=== PATIENT | female | born 1985 | race Caucasian/White ===

== ENCOUNTER 2017-09-11 04:04 | Inpatient (IN) | payer OTHER ==
[~2017-09-11] VITALS: Ht 172.7 cm; Wt 109.0 kg
[~2017-09-11 04:04] MED LIST: CLC100 PO; PRENTAB26 PO
[2017-09-11] MEDS ORDERED: BUPIVACAINE 0.25% 30 ML VIAL ONE (04:58)
[2017-09-11] MEDS ORDERED: FENTANYL CITRATE INJ 50 MCG/1 ML 2 ML VIAL ONE (04:58)
[2017-09-11] MEDS ORDERED: EpHEDrine SULFATE INJ 50 MG/ML AMP ONE (04:58)
[2017-09-11] MEDS ORDERED: FENTANYL 2MCG/ML ROPIV 1.25MG/ML 100ML BAG ONE (04:59)
[2017-09-11] MEDS ORDERED: LACTATED RINGER'S 1000ML 1,000 ML IV PRN ×2 (05:03→05:04)
[2017-09-11] MEDS ORDERED: LACTATED RINGER'S 1000ML 1,000 ML IV SCH ×2 (05:03→05:04)
[2017-09-11 05:31] LABS: HEMOGLOBIN 11.1 g/dL (12.0-16.0); MEAN CELL VOLUME 82.7 fL (80-100); MEAN CORPUSCULAR HGB CONC 32.6 g/dl (32-36); MEAN PLATELET VOLUME 11.3 fL (7.4-10.4); PLATELET COUNT 193 K/uL (130-400); RED CELL DISTRIBUTION WIDTH CV 15.9 % (11.5-14.5); WHITE BLOOD COUNT 14.02 K/uL (4.8-10.8)
[2017-09-11 05:56] VITALS: Ht 172.7 cm; Wt 109.0 kg
[2017-09-11] MEDS ORDERED: LACTATED RINGER'S 1000ML 500 ML IV PRN (06:28)
[2017-09-11] MEDS ORDERED: NALOXONE HCL INJ 1 MG in SODIUM CHLORIDE 0.9% 1000ML 1,000 ML IV PRN (06:28)
[2017-09-11] MEDS ORDERED: FENTANYL 2MCG/ML ROPIV 1.25MG/ML 100ML BAG EPI PRN (06:30)
[2017-09-11] MEDS ORDERED: EpHEDrine SULFATE INJ 50 MG/ML AMP IV PRN (06:30)
[2017-09-11] MEDS ORDERED: NALOXONE HCL INJ 0.4 MG/1 ML VIAL/CARP IV PRN (06:30)
[2017-09-11] MEDS ORDERED: NALBUPHINE HCL INJ 10 MG/ML 1ML AMP IV PRN (06:30)
[2017-09-11] MEDS ORDERED: DiphenhydrAMINE HCL 50 MG/ML VIAL IV PRN (06:30)
[2017-09-11] MEDS ORDERED: ONDANSETRON INJ 2 MG/ML 2 ML VIAL IV PRN (06:30)
[2017-09-11] MEDS ORDERED: OXYTOCIN 30 UNITS/500ML NSS IV ONE (06:51)
[2017-09-11] MEDS ORDERED: MEASLES, MUMPS & RUBELLA VIRUS VIAL SQ. ONE (08:15)
[2017-09-11] MEDS ORDERED: DIPHTHERIA/TETANUS/PERTUSSIS 0.5 ML SYR/VIAL IM. ONE (08:15)
[2017-09-11] MEDS ORDERED: LANOLIN OINT EXT PRN (08:15)
[2017-09-11] MEDS ORDERED: ACETAMINOPHEN 325 MG TAB PO PRN (08:15)
[2017-09-11] MEDS ORDERED: OXYCODONE/ACETAMINOPHEN 5-325 TAB PO PRN (08:15)
[2017-09-11] MEDS ORDERED: SUPERCREAM 0.870 % 15GM JAR EXT PRN (08:15)
[2017-09-11] MEDS ORDERED: BENZOCAINE 20% AER SPR 82.5 GM CAN EXT PRN (08:15)
[2017-09-11] MEDS ORDERED: OXYTOCIN 30 UNITS/500ML NSS IV PRN (08:15)
--- NOTE | 2017-09-11 08:51 | DELIVERY SUMMARY ---
DATE OF OPERATION: 09/11/2017 DATE OF DELIVERY: 09/11/2017 TIME OF DELIVERY OF BABY: 0655 a.m. TIME OF DELIVERY OF PLACENTA: 0710 a.m. DETAILS OF DELIVERY: The patient was found to be fully dilated and head at +1 station and desired to push. She pushed for about 10 minutes. heart rate was having decelerations to 80-90's and the head was partially and the patient was pushing with good efforts. Due to suspected macrosomia and heart decelerations, decision was made to open a small right mediolateral episiotomy. The patient had good pain control with epidural. The episiotomy was opened and then with the patient push, head was delivered without difficulty. There was nuchal cord around the neck x1 which was loose and was reduced. The shoulders were delivered with minimal traction. Baby was handed off to the mother where mouth and nose were suctioned. Baby was crying and actively moving. Cord was clamped x2 and cut at 1 minute delay and then cord blood was obtained. Then, perineum and vagina were checked for lacerations. There was small right mediolateral episiotomy which was opened earlier. It was repaired with 2-0 Vicryl in a running locked fashion. Excellent hemostasis was achieved. There noted to be superficial lacerations between the labial fusion and superior to the urethral opening. Those were also repaired with 3-0 Vicryl on SH needle. Then, the placenta was found to be in the vagina, delivered spontaneously intact and complete. Uterus was explored, found to be empty. Lower segment was cleared off all clots and debris. Fundus was firm. EBL was 200 mL. Mother and baby tolerated the procedure well. Sponge, lap, and needle counts were correct x3. Baby was a viable female infant. Apgars 8/9. Weight was 4043 gr. No complications happened and I was present during whole procedure. I attest to the content of the Intraoperative Record and any orders documented therein. Any exceptions are noted below. MTDD
--- NOTE | 2017-09-11 09:09 | Anesthesia Procedure Note ---
Anesthesia Epidural Removal Nt Date & Time Sep 11, 2017 at 09:08 Vital Signs Pain Intensity: 10.0 Notes Mental Status: alert / awake / arousable, participated in evaluation Nausea / Vomiting: adequately controlled Pain: adequately controlled Airway Patency, RR, SpO2: stable & adequate BP & HR: stable & adequate Hydration State: stable & adequate Neuraxial Anesthesia: was administered, sensory block is resolved Anesthetic Complications: no major complications apparent, pt satisfied with anesthetic care Epidural: removed without complications, with tip intact
[2017-09-11 09:45] VITALS: BP 123/64; PULSE 92; TEMP 36.8; O2SAT 98
[2017-09-11 12:06] VITALS: BP 120/77; PULSE 79; TEMP 36.9; O2SAT 97
[2017-09-11] MEDS: IBUPROFEN 600 MG TAB PO PRN ×3 (13:21→23:44)
[2017-09-11 15:30] VITALS: BP 126/85; PULSE 82; TEMP 36.7
[2017-09-11 19:05] VITALS: BP 124/82; PULSE 81; TEMP 37.1
[2017-09-11] MEDS: DOCUSATE SODIUM 100 MG CAP PO SCH (19:20)
[2017-09-11 23:45] VITALS: BP 117/78; PULSE 65; TEMP 36.5
[2017-09-12 03:35] VITALS: BP 120/74; PULSE 76; TEMP 36.6
[2017-09-12 06:13] LABS: HEMATOCRIT 31.1 % (37-47); HEMOGLOBIN 9.9 g/dL (12.0-16.0)
[2017-09-12] MEDS: IBUPROFEN 600 MG TAB PO PRN ×2 (07:10→12:34)
[2017-09-12 07:38] VITALS: BP 134/84; PULSE 66; TEMP 36.7; O2SAT 99
--- NOTE | 2017-09-12 07:38 | OB/GYN Progress Note ---
[facility] Progress Note Date of Service: Sep 12, 2017. Patient is seen and examined. She feels well, no complaints. Ambulating without dizziness Voiding without difficulty Tolerating regular diet with out N&V Bleeding is minimal No fever/ chills/ CP/ SOB/ N&V/ Leg pain Breast feeding without problems Date Time Temp Pulse Resp B/P (MAP) Pulse Ox O2 Delivery O2 Flow Rate FiO2 09/12/17 03:35 36.6 76 18 120/74 (89) Room Air 09/11/17 23:45 Room Air 09/11/17 23:45 36.5 65 18 117/78 (91) Room Air 09/11/17 19:05 37.1 81 20 124/82 (96) Room Air 09/11/17 15:30 36.7 82 18 126/85 (99) Room Air 09/11/17 15:30 Room Air 09/11/17 12:06 36.9 79 18 120/77 (91) 97 Room Air 09/11/17 09:45 36.8 92 18 123/64 (83) 98 Room Air 09/11/17 09:45 Room Air Last 24 Hours Test 09/12/17 05:48 Hemoglobin 9.9 g/dL Hematocrit 31.1 % PE: General: Alert, orientedx3, NAD Abd: soft, NT, fundus firm, below Umbilicus Perineum intact, Lochia rubra minimal Ext; NT, no edema AP: 32 yo s/p , ppd# 1 VSS Afebrile doing well Continue routine care All questions were answered
[2017-09-12] MEDS: DOCUSATE SODIUM 100 MG CAP PO SCH (07:45)
[2017-09-12] MEDS ORDERED: PRENATAL VITAMIN TAB PO SCH (08:00)
[2017-09-12] MEDS ORDERED: FERROUS SULFATE 325 MG TAB PO SCH (08:00)
[2017-09-12 15:54] VITALS: BP 117/79; PULSE 79; TEMP 36.4; O2SAT 99
--- NOTE | 2017-09-12 16:40 | Discharge Instructions ---
Discharge Instructions Date of Service Sep 12, 2017. Admission Reason for Admission: LABOR Discharge Discharge Diagnosis / Problem: Discharge Goals Goal(s): Routine recovery after delivery Medications Continue Dispensed Medications: other Activity Recommendations Activity Limitations: as noted below ACTIVITY RECOMMENDATIONS: * Gradual return to full activity over the next 2-3 weeks. * No lifting - nothing heavier than baby over the next 2-3 weeks. * Do not engage in vigorous exercise, sexual activity or sports until cleared by your physician. * Do not drive or operate any motorized equipment until cleared by your physician. * You may shower/bathe daily. BREAST CARE: If you are not breast feeding: * Wear a supportive bra 24 hours a day for one to two weeks. * Avoid stimulating your breasts and nipples as much as possible during the first few weeks after delivery. * When taking a shower, have the warm water hit your back, not breasts. * When your breasts feel full, apply ice packs. Usually three to four times a day helps ease the discomfort. * Take a mild pain medication (Tylenol/Motrin) when you are uncomfortable. If breast feeding: * Use breast milk to lubricate nipples. Lansinoh cream may be used for sore nipples. You do not need to remove cream prior to breast feeding. If using a different brand of cream, check the label for directions regarding removal of cream prior to nursing. * Wear a supportive bra. * If having problems with breasts or breast feeding, call a business analyst consultant or your health care provider. EPISIOTOMY CARE: After delivery, if you have an episiotomy (stitches), the following steps will ease discomfort and aid healing. * For the first 24 hours after delivery, place ice packs next to your episiotomy to help reduce swelling. * After the first 24 hour-period, sitz baths, either portable or in the tub, are suggested. A shower with a shower arm sprayed over the episiotomy may be comforting. * Sahra care should be done after each voiding and bowel movement. Squirt warm water from a plastic bottle over the perineum (region of the body between the anus and urinary opening) and pat dry. * Use Dermoplast to ease discomfort. Shake container. [place] directly over the episiotomy. * Place a Tucks on a clean sanitary pad next to your episiotomy. OVER THE COUNTER MEDICATION: * For discomfort or pain, you may use Acetaminophen (Tylenol), Ibuprofen (Advil ), or Naproxen (Aleve) following the package directions. * For constipation you may use Colace following the package directions. SPECIAL CARE INSTRUCTIONS: When you are discharged from the hospital, it is important for you to follow the instructions listed below: * During the first week at home, you should be able to care for yourself and your baby. In addition, the usual light household activities are encouraged. * Limit your activities to the way you feel. Do not try to clean the house or move furniture. Be sensible. * If you actively engage in sports and have done so up until the time of your delivery, you may resume these activities as soon as you feel able. This may take up to one month or even longer. Use good judgment. * Continue to take your vitamins for at least six weeks after the of your baby. * Your diet need not be limited unless you were on a special diet before your delivery. Breast-feeding mothers need around 2500 calories per day and at least 64-80 ounces of fluid per day (8 to 10 glasses). * You should eat foods from the four major food groups. Crash diets or fad diets are to be avoided. Eating lean meats, fresh fruits and vegetables, low-fat dairy products, high fiber foods and a regular exercise program, will help you get back to your pre- weight without putting your health at risk. * Constipation is sometimes a problem after delivery. Take a mild laxative as needed. If breast feeding, Milk of Magnesia is acceptable to use. You may use a suppository or Fleets enema if no episiotomy. * A daily shower or tub bath is suggested. Be sure to thoroughly and gently dry the perineum. * A bloody vaginal discharge will usually continue until around four weeks post . A small amount of bleeding may continue for as long as six weeks. Vaginal discharge changes from the bright red bleeding after delivery to pink then brownish and finally yellowish-pink before becoming white and disappearing. * Bleeding may increase with activity. Your first period may come in 4-8 weeks. If you are breast feeding, your period may be delayed even longer. * [place] (sex) can begin whenever both you and your partner feel comfortable and do not have any form of genital infection. It is recommended that you wait until after your return appointment and discuss with your physician. If you have questions, please talk to your health care practitioner. A condom should be used to prevent infection and . * Foreplay, gentle intercourse and lubrication is very important the first several times to prevent pain. A water-based lubricant such as K-Y jelly or Astroglide may be used. * Tampons may be used six weeks after delivery. * Douching should be avoided for 6 weeks after delivery. * If you have RH negative blood and your baby is RH positive, you will receive RHOGAM by injection prior to discharge. The nurse will give you a card to keep with you that has the date and place that you received RHOGAM after delivery. * During your care, you had a Rubella screen done to check for the presence of rubella antibodies in your blood. If your test was negative, you will receive a Rubella vaccine prior to discharge. This vaccine may cause a fever, soreness at the injection site and flu-like symptoms. If these symptoms persist, notify your health care practitioner. is not advised for three months after a Rubella vaccine. There is a higher chance of having a baby with defects if conceived within three months of getting the vaccine. * If you were discharged 24 hours from delivery or before 48 hours: Visiting nurses will come to your home 48 hours after discharge to assess you and your baby. The visiting nurse will meet with you while you are in the hospital to arrange a time and get directions to your home. * Verbalizes understanding of car seat law as reviewed with patient nursing. * Car Seat hand-out given and reviewed with patient by nursing. * Shaken baby information reviewed with patient by nursing. Call you doctor if: * Heavy bleeding (saturating several pads an hour) or passing clots the size of your fist. * A fever >101 degrees F (38.3 degrees C) on two occasions four hours apart and/or chills. * Unusual pain in the pelvic or vaginal areas. * "Baby Blues" lasting longer than two weeks. If you have any questions or concerns, call your health care practitioner at . FOLLOW-UP VISIT: * Please call the office at to schedule a 6 week examination. It is important you keep this appointment. * It is important for you to make arrangements for either yearly or twice yearly check-ups thereafter. . Current Hospital Diet Patient's current hospital diet: Regular OB Diet Discharge Diet Recommended Diet: Regular Diet Pending Studies Studies pending at discharge: no Medical Emergencies . Who to Call and When: Medical Emergencies: If at any time you feel your situation is an emergency, please call 911 immediately. . Non-Emergent Contact Non-Emergency issues call your: Flash Drier Operator, Specialist Call Non-Emergent contact if: you have a fever, temperature is above 100.5, your pain is not controlled, your pain is worsening . . "Provider Documentation" section prepared by Jake Gasca. .
[2017-09-12 18:19] VITALS: BP_DIAS 79; PULSE 79; TEMP 36.4
[2017-09-12] MEDS ORDERED: BISACODYL 5 MG TABEC PO SCH (20:00)
[2017-09-13] MEDS ORDERED: BISACODYL 10 MG SUPP PR PRN (07:00)
== END 2017-09-12 18:45 | disposition home or self-care (01) | DRG 775 ==
LOC: C.OPB 04:04 → C.LD 04:13 → C.OPB 05:06 → C.LD 05:06 → C.OBG 10:11
PROVIDERS: ADMIT Obstetrics & Gynecology; ATTEND Obstetrics & Gynecology
PROC: 0W8NXZZ Division of Female Perineum, External Approach (ICD-10-PCS; principal; 2017-09-11)
PROC: 10E0XZZ Delivery of Products of Conception, External Approach (ICD-10-PCS; principal; 2017-09-11)
DX: O76 Abnormality in fetal heart rate and rhythm complicating labor and delivery (principal); O69.81X0 Labor and delivery complicated by cord around neck, without compression, not applicable or unspecified; O99.214 Obesity complicating childbirth; E66.9 Obesity, unspecified; Z3A.40 40 weeks gestation of pregnancy; Z37.0 Single live birth

== ENCOUNTER 2024-01-25 10:10 | Inpatient (IN) ==
--- NOTE | 2024-01-25 10:53 | Emergency Department Note ---
Impression & Plan Bowel perforation, Acute left flank pain, Leukocytosis, Intra-abdominal free air of unknown etiology ED Provider Note NAME: RASHAWN ROJAS AGE: 38 SEX: F : 1985 ARRIVES VIA: Walk-In INFORMANT: [Patient] ED PROVIDER(S): [Dre Monroy MD] CHIEF COMPLAINT: Flank pain HISTORY OF PRESENT ILLNESS: The patient is a 38-year-old female who presents to the ER with left posterior rib and flank pain. The pain began yesterday midday when she was sitting. The pain is worse to move, she has no pain if she lays still. She does have some pleuritic discomfort with the pain. She is not really short of breath. There has been no cough or congestion. She does not have any pain radiation. No urinary complaints. She has not vomited but did feel some nausea at times. No history of previous DVT or PE, she has not suffered trauma. PMHx/PSHx/Social Hx: See Below PHYSICAL EXAM: GENERAL: Patient is in no acute distress. HEENT: No acute trauma, normocephalic atraumatic, mucous membranes moist, no nasal congestion. NECK: No stridor, no adenopathy, no meningismus, trachea is midline. LUNGS: Clear to auscultation bilaterally, no wheeze, no rhonchi, breath sounds equal. Chest: Tender to the left posterior lateral ribs, no crepitus. HEART: Without murmurs gallops or rubs, regular rate and rhythm. ABDOMEN: Soft, very minimally tender in the left upper quadrant, mostly, palpation here causes pain in the area of the left posterior ribs. EXTREMITIES: No cyanosis, full range of motion of all the joints without pain or difficulty. NEUROLOGIC: Oriented x 3, no acute motor or sensory deficits, no focal weakness. SKIN: No jaundice, no diaphoresis. Back: Left flank discomfort with percussion. DIFFERENTIAL DIAGNOSIS: Musculoskeletal pain, PE, pneumonia, UTI, renal colic, diverticulitis, pyelonephritis, among others. EMERGENCY DEPARTMENT PROCEDURES: MEDICAL DECISION MAKING: There is a mild leukocytosis, this would be consistent with infection. There was a normal hemoglobin and platelet count. D-dimer was elevated, making PE more of a possibility. There was no renal failure or significant electrolyte abnormality. No concerning liver enzyme elevation. No evidence for pancreatitis. testing was negative. Urinalysis did not show findings of infection. Chest x-ray showed free air. Abdominal and pelvis CT showed free air with a suspected gastric perforation. Patient was not in distress. She did not require anything for pain. The patient was given IV Zosyn as antibiotic coverage. She was given IV Protonix for the potential gastric ulcer findings. The patient presents with some left flank discomfort. She had minimal to no abdominal pain. Workup here suggests gastric perforation and free intra- abdominal air. I spoke with the patient, I spoke with the lead case manager. I did speak with the on-call general surgeon. The patient is being hospitalized. She is soon to be transferred to the operating room. Of note, I suspect the elevated D-dimer was secondary to the bowel perforation, I do not believe she has a PE. Prior/Outside records/notes reviewed: None Imaging/x-ray results per my interpretation: Chest x-ray shows free air, no pneumonia. Chronic Medical/Social conditions affecting care: None Care/Management discussed with: General Surgery-Dr. Montanez Level of care consideration(s): After review of the information above and other included data: --I believe the patient requires escalation of care to admission Critical Care Note: I have personally spent 53 minutes of critical care time in the direct management of this patient. This includes bedside care, interpretation of diagnostic studies, and testing, discussion with consultants, patient, and family members, and other required patient management activities. This 53 minutes is in excess of all separately billable procedures. DISPOSITION: Admission Past Med/Surg History Problem List (Updated 01/25/24 @ 16:17 by Dre Monroy MD) Intra-abdominal free air of unknown etiology (Acute) Leukocytosis (Acute) Acute left flank pain (Acute) Bowel perforation (Acute) Perforated ulcer Encounter for pre-operative examination Medical History No significant medical problems Surgical History (Updated 01/25/24 @ 13:36 by Canelo Singer MD) Hx of tonsillectomy Social History Smoking Status: Never smoker Feels Safe at Home: Yes Allergies Allergies Allergy/AdvReac Type Severity Reaction Status Date / Time prednisone Allergy Intermediate RASH Verified 11/20/13 05:17 Home Meds Home Medications Medication Instructions Recorded Confirmed Multivit/Min/Iron/Fol Ac/Pren 1 tab PO DAILY #0 tabs 11/18/13 ( Vitamin) Results & Data (ED) Vital Signs Vital Signs - 24 hr 01/25/24 10:10 01/25/24 10:18 01/25/24 10:57 Temperature 36.6 C Temperature Source Oral Pulse Rate 100 H 98 H Pulse Rate [Left Apical] Pulse Rhythm [Left Apical] Respiratory Rate 16 Respiratory Effort / Characteristics Non-Labored Spontaneous Respiratory Depth Normal Respiratory Pattern Regular Blood Pressure 127/78 Blood Pressure [Left Arm] Blood Pressure [Right Arm] Blood Pressure Mean 94 Blood Pressure Mean [Left Arm] Blood Pressure Mean [Right Arm] Blood Pressure Position [Left Arm] Pulse Oximetry 98 Oxygen Delivery Method Room Air Room Air Oxygen Flow Rate Sepsis Recent Fever Within 48 Hours No Sepsis New/Unexplained Change in Mental Status N/A Sepsis Action Taken by Nursing No Action Required 01/25/24 11:15 01/25/24 12:09 01/25/24 12:15 Temperature Temperature Source Pulse Rate 96 H 87 89 Pulse Rate [Left Apical] Pulse Rhythm [Left Apical] Respiratory Rate 20 19 24 Respiratory Effort / Characteristics Respiratory Depth Respiratory Pattern Blood Pressure 125/82 Blood Pressure [Left Arm] Blood Pressure [Right Arm] Blood Pressure Mean 96 Blood Pressure Mean [Left Arm] Blood Pressure Mean [Right Arm] Blood Pressure Position [Left Arm] Pulse Oximetry 98 97 95 Oxygen Delivery Method Oxygen Flow Rate Sepsis Recent Fever Within 48 Hours Sepsis New/Unexplained Change in Mental Status Sepsis Action Taken by Nursing 01/25/24 12:30 01/25/24 13:20 01/25/24 15:11 Temperature 36.7 C Temperature Source Temporal Artery Scan Pulse Rate Pulse Rate [Left Apical] 89 74 Pulse Rhythm [Left Apical] Regular Respiratory Rate 22 14 Respiratory Effort / Characteristics Non-Labored Spontaneous Non-Labored Spontaneous Respiratory Depth Normal Normal Respiratory Pattern Regular Regular Blood Pressure Blood Pressure [Left Arm] 134/90 Blood Pressure [Right Arm] 125/82 Blood Pressure Mean Blood Pressure Mean [Left Arm] 104 Blood Pressure Mean [Right Arm] 96 Blood Pressure Position [Left Arm] Semi-fowlers Pulse Oximetry 97 99 Oxygen Delivery Method Room Air Room Air Oxymask Oxygen Flow Rate 9 Sepsis Recent Fever Within 48 Hours Sepsis New/Unexplained Change in Mental Status Sepsis Action Taken by Nursing 01/25/24 15:20 01/25/24 15:30 01/25/24 15:40 Temperature Temperature Source Pulse Rate Pulse Rate [Left Apical] 79 77 80 Pulse Rhythm [Left Apical] Regular Regular Regular Respiratory Rate 15 18 12 Respiratory Effort / Characteristics Non-Labored Spontaneous Non-Labored Spontaneous Non-Labored Spontaneous Respiratory Depth Normal Normal Normal Respiratory Pattern Regular Regular Regular Blood Pressure Blood Pressure [Left Arm] 132/84 122/77 129/77 Blood Pressure [Right Arm] Blood Pressure Mean Blood Pressure Mean [Left Arm] 100 92 94 Blood Pressure Mean [Right Arm] Blood Pressure Position [Left Arm] Semi-fowlers Semi-fowlers Semi-fowlers Pulse Oximetry 100 100 98 Oxygen Delivery Method Oxymask Oxymask Oxymask Oxygen Flow Rate 9 9 4 Sepsis Recent Fever Within 48 Hours Sepsis New/Unexplained Change in Mental Status Sepsis Action Taken by Nursing 01/25/24 15:50 01/25/24 16:00 Temperature Temperature Source Pulse Rate Pulse Rate [Left Apical] 81 79 Pulse Rhythm [Left Apical] Regular Regular Respiratory Rate 16 16 Respiratory Effort / Characteristics Non-Labored Spontaneous Non-Labored Spontaneous Respiratory Depth Normal Normal Respiratory Pattern Regular Regular Blood Pressure Blood Pressure [Left Arm] 123/79 129/79 Blood Pressure [Right Arm] Blood Pressure Mean Blood Pressure Mean [Left Arm] 93 95 Blood Pressure Mean [Right Arm] Blood Pressure Position [Left Arm] Semi-fowlers Semi-fowlers Pulse Oximetry 96 95 Oxygen Delivery Method Oxymask Room Air Oxygen Flow Rate 4 Sepsis Recent Fever Within 48 Hours Sepsis New/Unexplained Change in Mental Status Sepsis Action Taken by Long Term Medications Current Medication List: was personally reviewed by me Laboratory Data Attestation: I reviewed the patient's lab results. 01/25/24 10:49 01/25/24 10:49 Lab Results 01/25/24 01/25/24 01/25/24 Range/Units 10:48 10:49 10:50 WBC 13.57 H (4.8-10.8) K/ul RBC 4.77 (4.20-5.40) M/uL Hgb 14.0 (12.0-16.0) g/dl Hct 42.1 (37.0-47.0) % MCV 88.3 (80.0-100.0) fL MCH 29.4 (25.0-34.0) pg MCHC 33.3 (32.0-36.0) g/dL RDW Std Deviation 44.6 (36.4-46.3) fL RDW Coeff of Felice 13.8 (11.5-14.5) % Plt Count 277 (130-400) K/uL MPV 10.8 (9.4-12.4) fL Immature Gran % (Auto) 0.4 % Neut % (Auto) 78.7 % Lymph % (Auto) 14.4 % Nobles % (Auto) 5.8 % Eos % (Auto) 0.4 % Baso % (Auto) 0.3 % Neut # (Auto) 10.68 H (1.40-6.50) K/uL Lymph # (Auto) 1.95 (1.20-3.40) K/uL [place] # (Auto) 0.79 H (0.11-0.59) K/uL Eos # (Auto) 0.05 (0.00-0.50) K/uL Baso # (Auto) 0.04 (0.00-0.20) K/uL Immature Gran # (Auto) 0.06 (0.01-0.20) K/uL D-Dimer 1130 H* (0-500) ug/L FEU Sodium 137 (136-145) mmol/L Potassium 3.9 (3.5-5.1) mmol/L Chloride 106 (98-107) mmol/L Carbon Dioxide 23 (21-32) mmol/L Anion Gap 8 (3-11) BUN 10 (6-23) mg/dl Creatinine 0.76 (0.6-1.2) mg/dl Est Cr Clr Drug Dosing 129.4 ml/min eGFR 103.44 BUN/Creatinine Ratio 13.2 (10-20) Glucose 96 (70-99(Fasting)) mg/dl Calcium 9.2 (8.6-10.3) mg/dl Total Bilirubin 0.8 (0.2-1.0) mg/dl AST 20 (13-39) U/L ALT 28 (7-52) U/L Alkaline Phosphatase 104 (34-104) U/L Total Protein 7.6 (6.0-8.3) gm/dl Albumin 4.3 (3.4-5.0) gm/dl Globulin 3.3 (2.5-4.0) gm/dl Albumin/Globulin Ratio 1.3 (0.9-2) Lipase 17 (11-82) U/L HCG, Qual Negative (Negative) Urine Color Yellow Urine Appearance Clear (Clear) Urine pH 7.0 (4.5-7.5) Ur Specific [place] 1.015 (1.000-1.030) Urine Protein Negative (Negative) Urine Glucose (UA) Negative (Negative) Urine Ketones Negative (Negative) Urine Blood Negative (Negative) Urine Nitrite Negative (Negative) Urine Bilirubin Negative (Negative) Urine Urobilinogen Negative (Negative) Ur Leukocyte Esterase 1+ H (Negative) Urine WBC (Auto) 0-5 (0-5) /hpf Urine RBC (Auto) 3-5 H (0-2) /hpf U Hyaline Cast (Auto) 3-5 H (0-2) /lpf U Epithel Cells (Auto) 3-5 H (0-2) /hpf Urine Bacteria (Auto) 1+ H (None Seen) Administered Medications Hydromorphone HCl (Hydromorphone Inj 1 Mg/Ml Syringe) 0.25 mg IV Q5M PRN PRN Reason: PACU Use Only-Pain Stop: 01/25/24 23:47 Last Admin: 01/25/24 16:01 Dose: 0.25 mg Documented By: Admin: 01/25/24 15:56 Dose: 0.25 mg Documented By: Admin: 01/25/24 15:51 Dose: 0.25 mg Documented By: JACQUELINE Discontinued Medications Hydromorphone HCl (Hydromorphone Inj 1 Mg/Ml Syringe) 0.25 mg IV Q5M PRN PRN Reason: PACU Use Only-Pain Stop: 01/25/24 21:41 Last Admin: 01/25/24 15:39 Dose: 0.25 mg Documented By: Admin: 01/25/24 15:31 Dose: 0.25 mg Documented By: Admin: 01/25/24 15:25 Dose: 0.25 mg Documented By: Admin: 01/25/24 15:20 Dose: 0.25 mg Documented By: JACQUELINE Piperacillin Sod/Tazobactam Sod (Zosyn) 4.5 gm in 100 mls @ 200 mls/hr IV NOW ONE Stop: 01/25/24 11:38 Last Admin: 01/25/24 11:22 Dose: 200 mls/hr Documented By: NICO Cefazolin Sodium (Ancef 2000mg) 2,000 mg in 15 mls @ 3.75 mls/min IV ONCE ONE; Protocol Stop: 01/25/24 14:47 Last Admin: 01/25/24 14:05 Dose: 3.75 mls/min Documented By: MAURICIO Ioversol (Optiray 320 100ml) 94 ml IV ONCE ONE Stop: 01/25/24 12:01 Last Admin: 01/25/24 12:00 Dose: 94 ml Documented By: SCOT Imaging Data Radiologist's Impression: Chest X-Ray 01/25/24 10:48 XR chest 1V portable CLINICAL HISTORY: left flank pain COMPARISON STUDY: Chest radiograph September 27, 2008. FINDINGS: No pneumothorax or pleural effusion is present. Linear left lower lung densities favor atelectasis. There is no evidence for pulmonary edema. Lucency under the hemidiaphragms indicates moderate pneumoperitoneum. IMPRESSION: 1. Moderate pneumoperitoneum suggestive of a perforated hollow viscus. This can be assessed on the CT of the abdomen and pelvis which has been ordered. 2. Left basilar density suggestive atelectasis. ACT 112: Negative or not required by law. Electronically signed by: Alejandro White M.D. 01/25/2024 11:32 AM Abdomen/Pelvis CT 01/25/24 11:09 CT OF THE ABDOMEN AND PELVIS WITH CONTRAST CLINICAL HISTORY: free air, left flank pain COMPARISON STUDY: Chest radiograph performed earlier today. TECHNIQUE: Following IV administration of 94 mL of Optiray, axial images of the abdomen and pelvis were obtained from the lung bases to the proximal femurs. Images were reviewed in the axial, sagittal, and coronal planes. IV contrast was administered without complication. Automated exposure control was utilized for the study. A dose lowering technique was utilized adhering to the principles of ALARA. CT DOSE: 1509.78 mGy.cm FINDINGS: There is a small hiatal hernia. Linear densities within the lower lungs favor atelectasis. Moderate pneumoperitoneum is present. There is mild stranding adjacent to the gastric cardia. No fluid collection is present. There may be wall thickening of the gastric cardia. Liver, spleen, adrenal glands, kidneys and pancreas are normal. There is no evidence for a bowel obstruction. Intrauterine device is in place. Major vasculature is patent. There is no hydronephrosis. There is no lymphadenopathy. IMPRESSION: Moderate pneumoperitoneum consistent with a perforated hollow viscus. Given mild stranding adjacent to the stomach, a perforated gastric ulcer is favored. Surgical consultation is recommended. ACT 112: Negative or not required by law. Electronically signed by: Alejandro White M.D. 01/25/2024 12:32 PM Discharge Plan Visit Data Chief Complaint: Flank Pain Stated Complaint: L SIDE ABD AND FLANK PAIN ED Provider: Dre Monroy Discharge Problem: Bowel perforation, Acute left flank pain, Leukocytosis, Intra-abdominal free air of unknown etiology Patient Disposition: Admitted As Inpatient Condition: Serious Discharge Instructions Interventions: ED Discharge Assessment Last Done: 01/25/24 13:20 Forms Stand Alone Forms: [employer] Prescriptions Prescriptions: No Action Multivit/Min/Iron/Fol Ac/Pren ( Vitamin) tablet 1 tab PO DAILY Qty: 0 Referrals Referrals: PCP,NO [Physician] - Discharge Problem: Leukocytosis Qualifiers: Leukocytosis type: unspecified Qualified Code(s): D72.829 - Elevated white blood cell count, unspecified
[2024-01-25 11:15] LABS: Basophils # (auto) 0.04 K/uL (0.00-0.20); Basophils % (auto) 0.3 %; Eosinophils # (auto) 0.05 K/uL (0.00-0.50); Eosinophils % (auto) 0.4 %; Hematocrit (blood only) 42.1 % (37.0-47.0); Immature Granulocytes # (auto) 0.06 K/uL (0.01-0.20); Immature Granulocytes % (auto) 0.4 %; Lymphocytes # (auto) 1.95 K/uL (1.20-3.40); Lymphocytes % (auto) 14.4 %; Mean Corpuscular Hemoglobin 29.4 pg (25.0-34.0); Mean Corpuscular Hgb Conc 33.3 g/dL (32.0-36.0); Mean Corpuscular Volume 88.3 fL (80.0-100.0); Mean Platelet Volume 10.8 fL (9.4-12.4); Monocytes # (auto) 0.79 K/uL (0.11-0.59); Monocytes % (auto) 5.8 %; Neutrophils # (auto) 10.68 K/uL (1.40-6.50); Neutrophils % (auto) 78.7 %; Platelet Count 277 K/uL (130-400); RDW Coefficient of Variation 13.8 % (11.5-14.5); RDW Standard Deviation 44.6 fL (36.4-46.3); Red Blood Count 4.77 M/uL (4.20-5.40); White Blood Count 13.57 K/ul (4.8-10.8)
[2024-01-25 11:18] LABS: Appearance Urine Clear (Clear); Bacteria Urine Automated 1+ (None Seen); Bilirubin Urine Negative (Negative); Blood Urine Negative (Negative); Color Urine Yellow; Glucose Urine UA Negative (Negative); Ketones Urine Negative (Negative); Leukocyte Esterase Urine 1+ (Negative); Nitrite Urine Negative (Negative); Protein Urine Negative (Negative); Specific Gravity Urine 1.015 (1.000-1.030); Urobilinogen Urine Negative (Negative); WBC Urine Automated 0-5 /hpf (0-5)
[2024-01-25] MEDS: PIPERACILLIN/TAZOBACTAM 4.5 GM/100 ML BAG IV ONE (11:22)
[2024-01-25 11:32] LABS: Pregnancy Test, Serum Negative (Negative)
--- NOTE | 2024-01-25 11:34 | XRay Report ---
XR chest 1V portable CLINICAL HISTORY: left flank pain COMPARISON STUDY: Chest radiograph September 27, 2008. FINDINGS: No pneumothorax or pleural effusion is present. Linear left lower lung densities favor atel ectasis. There is no evidence for pulmonary edema. Lucency under the hemidiaphragms indicates moderat e pneumoperitoneum. IMPRESSION: 1. Moderate pneumoperitoneum suggestive of a perforated hollow viscus. This can be assessed on the CT of the abdomen and pelvis which has been ordered. 2. Left basilar density suggestive atelectasis. ACT 112: Negative or not required by law. Electronically signed by: Alejandro White M.D. 01/25/2024 11:32 AM
[2024-01-25 11:38] LABS: Albumin Globulin Ratio 1.3 (0.9-2); Albumin Level 4.3 gm/dl (3.4-5.0); BUN Creatinine Ratio 13.2 (10-20); Bilirubin,Total 0.8 mg/dl (0.2-1.0); Calcium 9.2 mg/dl (8.6-10.3); Creatinine Clr Calc Pharmacy 129.4 ml/min; Globulin 3.3 gm/dl (2.5-4.0); Potassium 3.9 mmol/L (3.5-5.1); Total Protein 7.6 gm/dl (6.0-8.3)
[2024-01-25 11:51] LABS: D Dimer 1130 ug/L FEU (0-500)
[2024-01-25] MEDS: OPTIRAY 320 100ml IV ONE (12:00)
--- NOTE | 2024-01-25 12:34 | CT Scan Report ---
CT OF THE ABDOMEN AND PELVIS WITH CONTRAST CLINICAL HISTORY: free air, left flank pain COMPARISON STUDY: Chest radiograph performed earlier today. TECHNIQUE: Following IV administration of 94 mL of Optiray, axial images of the abdomen and pelvis we re obtained from the lung bases to the proximal femurs. Images were reviewed in the axial, sagittal, and coronal planes. IV contrast was administered without complication. Automated exposure control wa s utilized for the study. A dose lowering technique was utilized adhering to the principles of ALARA . CT DOSE: 1509.78 mGy.cm FINDINGS: There is a small hiatal hernia. Linear densities within the lower lungs favor atelectasis. Moderate pneumoperitoneum is present. There is mild stranding adjacent to the gastric cardia. No flui d collection is present. There may be wall thickening of the gastric cardia. Liver, spleen, adrenal g lands, kidneys and pancreas are normal. There is no evidence for a bowel obstruction. Intrauterine de vice is in place. Major vasculature is patent. There is no hydronephrosis. There is no lymphadenopath y. IMPRESSION: Moderate pneumoperitoneum consistent with a perforated hollow viscus. Given mild strandi ng adjacent to the stomach, a perforated gastric ulcer is favored. Surgical consultation is recommend ed. ACT 112: Negative or not required by law. Electronically signed by: Alejandro White M.D. 01/25/2024 12:32 PM
[2024-01-25] MEDS ORDERED: LIDOCAINE 2% 2 ML VIAL/AMP(20MG/ML) INFIL ONE (12:54)
[2024-01-25] MEDS ORDERED: MIDAZOLAM HCL 1 MG/ML 2ML VIAL ONE (12:54)
[2024-01-25] MEDS ORDERED: ROCURONIUM BROMIDE 10 MG/ML 5 ML VIAL IV ONE (12:54)
[2024-01-25] MEDS ORDERED: fentaNYL citrate PF 100 MCG/2 ML VIAL ONE ×2 (12:54→14:17)
[2024-01-25] MEDS ORDERED: PROPOFOL IV EMULSION 10 MG/ML 20 ML VIAL IV ONE (12:54)
--- NOTE | 2024-01-25 13:18 | History & Physical Report ---
Date of Service January 25, 2024 Assessment & Plan (1) Perforated ulcer: Plan: IVF IV abx to OR for exploration consent obtained. History of Present Illness Primary Care Provider: Judie Cordero DO This is a 38YO seen in ED with LUQ abdominal pain which began yesterday. She has nausea but no vomiting. A CT scan shows free air and a likely perforated gastric or duodenal ulcer. Minimal free fluid. Allergies Allergy/AdvReac Type Severity Reaction Status Date / Time prednisone Allergy Intermediate RASH Verified 11/20/13 05:17 Home Medications Medication Instructions Recorded Confirmed Type Multivit/Min/Iron/Fol Ac/Pren 1 tab PO DAILY #0 tabs 11/18/13 History ( Vitamin) Past Med/Surg History Problem List (Updated 01/25/24 @ 13:19 by Julien Montanez MD) Perforated ulcer Social History Smoking Status: Never smoker Feels Safe at Home: Yes Review of Systems + anorexia; no fever and no chills no problem reported no problem reported no cough and no dyspnea no chest pain + abdominal pain and + nausea; no vomiting no dysuria + back pain no problem reported no localized weakness and no generalized weakness no behavioral changes Physical Exam Constitutional: WD/WN, vitals as above Eyes: PERRL, conjunctivae normal, anicteric sclerae ENMT: external ear and nose normal, oropharynx normal Neck: trachea midline Respiratory: normal respiratory effort, lungs clear to auscultation Cardiovascular: RRR, no murmur, no edema Gastrointestinal (Abdomen): Inspection/Auscultation: abdomen normal to inspection and normal bowel sounds; abdomen not distended Percussion/Palpation: + abdomen tender, + guarding and abdomen soft; abdomen not rigid Musculoskeletal: Head/Neck/Chest: normocephalic and head atraumatic Skin: no rashes, warm and dry Results & Data Vital Signs (Past 12 Hours) Vital Signs Temp Pulse Pulse Resp BP BP Pulse Ox 01/25/24 12:30 89 22 125/82 97 01/25/24 12:15 89 24 125/82 95 01/25/24 12:09 87 19 97 01/25/24 11:15 96 H 20 98 01/25/24 10:57 98 H 01/25/24 10:18 36.6 C 100 H 16 127/78 98 01/25/24 10:10 O2 Del Method 01/25/24 12:30 Room Air 01/25/24 12:15 01/25/24 12:09 01/25/24 11:15 01/25/24 10:57 01/25/24 10:18 Room Air 01/25/24 10:10 Room Air Diagnostic Findings [facility], [place] CT OF THE ABDOMEN AND PELVIS WITH CONTRAST CLINICAL HISTORY: free air, left flank pain COMPARISON STUDY: Chest radiograph performed earlier today. TECHNIQUE: Following IV administration of 94 mL of Optiray, axial images of the abdomen and pelvis were obtained from the lung bases to the proximal femurs. Images were reviewed in the axial, sagittal, and coronal planes. IV contrast was administered without complication. Automated exposure control was utilized for the study. A dose lowering technique was utilized adhering to the principles of ALARA. CT DOSE: 1509.78 mGy.cm FINDINGS: There is a small hiatal hernia. Linear densities within the lower lungs favor atelectasis. Moderate pneumoperitoneum is present. There is mild stranding adjacent to the gastric cardia. No fluid collection is present. There may be wall thickening of the gastric cardia. Liver, spleen, adrenal glands, kidneys and pancreas are normal. There is no evidence for a bowel obstruction. Intrauterine device is in place. Major vasculature is patent. There is no hydronephrosis. There is no lymphadenopathy. IMPRESSION: Moderate pneumoperitoneum consistent with a perforated hollow viscus. Given mild stranding adjacent to the stomach, a perforated gastric ulcer is favored. Surgical consultation is recommended.
--- NOTE | 2024-01-25 13:36 | Anesthesiology Consultation ---
Date of Service January 25, 2024 Assessment & Plan (1) Encounter for pre-operative examination: Chart Review Chart Review: Acceptable Risk for Surgery History Surgery Operation Date: 01/25/24 13:30 Proposed Procedures p Bowel Resection - Julien Montanez MD Height/Weight Height: 5 ft 8 in Weight: 106.3 kg Allergies Allergy/AdvReac Type Severity Reaction Status Date / Time prednisone Allergy Intermediate RASH Verified 11/20/13 05:17 Medications Home Medications Medication Instructions Recorded Confirmed Last Taken Multivit/Min/Iron/Fol Ac/Pren 1 tab PO DAILY #0 tabs 11/18/13 Unknown ( Vitamin) Past Medical History Medical History (Updated 01/25/24 @ 13:36 by Canelo Singer MD) Perforated ulcer Past Surgical History Surgical History (Updated 01/25/24 @ 13:36 by Canelo Singer MD) Hx of tonsillectomy Social History Smoking Status: Never smoker Physical Exam Vital Signs Last Vital Signs Temp 36.6 C 01/25/24 10:18 Pulse 89 01/25/24 12:30 Resp 22 01/25/24 12:30 BP 125/82 01/25/24 12:30 Pulse Ox 97 01/25/24 12:30 O2 Del Method Room Air 01/25/24 13:20 Testing Laboratory Results 01/25/24 10:49 01/25/24 10:49 Urine Color Yellow 01/25/24 10:50 Urine Appearance Clear (Clear) 01/25/24 10:50 Urine pH 7.0 (4.5-7.5) 01/25/24 10:50 Ur Specific [place] 1.015 (1.000-1.030) 01/25/24 10:50 Urine Protein Negative (Negative) 01/25/24 10:50 Urine Glucose (UA) Negative (Negative) 01/25/24 10:50 Urine Ketones Negative (Negative) 01/25/24 10:50 Urine Nitrite Negative (Negative) 01/25/24 10:50 Ur Leukocyte Esterase 1+ (Negative) H 01/25/24 10:50 Urine WBC (Auto) 0-5 /hpf (0-5) 01/25/24 10:50 Urine RBC (Auto) 3-5 /hpf (0-2) H 01/25/24 10:50 U Hyaline Cast (Auto) 3-5 /lpf (0-2) H 01/25/24 10:50 U Epithel Cells (Auto) 3-5 /hpf (0-2) H 01/25/24 10:50 Urine Bacteria (Auto) 1+ (None Seen) H 01/25/24 10:50
[2024-01-25] MEDS ORDERED: ATROPINE SULFATE 0.1 MG/ML 10ML SYR IV PRN (13:41)
[2024-01-25] MEDS ORDERED: PROMETHAZINE HCL 6.25 MG in SODIUM CHLORIDE 0.9% 50 ML IV PRN (13:41)
[2024-01-25] MEDS ORDERED: ONDANSETRON INJ 2 MG/ML 2 ML VIAL IV PRN (13:41)
[2024-01-25] MEDS: ceFAZolin 2000MG 2,000 MG/15 ML SYR IV ONE (14:05)
[2024-01-25] MEDS ORDERED: ceFAZolin 330 MG/ML 1 GM VIAL ONE (14:06)
[2024-01-25] MEDS ORDERED: KETAMINE HCL 10MG/ML SYR ONE (14:09)
[2024-01-25] MEDS ORDERED: SUGAMMADEX SODIUM 200 MG/2 ML VIAL IV ONE ×2 (14:46→15:01)
--- NOTE | 2024-01-25 15:17 | Operative Report ---
Post Operative Report Pre & Post Diagnosis Operation Date: 01/25/24 13:30 Perforated gastric cardia ulcer I identified the patient and participated in the time-out.: Yes Procedure Operation Date: 01/25/24 13:30 Perforated gastric cardia ulcer Surgeon Julien Montanez MD Visual Specialist none Estimated Blood Loss 75 Findings Consistent with Post-Op Diagnosis Specimens Gastric cardia ulcer Drains Flako drain in subhepatic space Anesthesia Type General Complications none Disposition Accompanied Patient To Recovery: No Disposition: Recovery Room Indications This is a 38-year-old female who was seen in the ED after workup for abdominal pain. CT scan shows free air along with some changes in the gastric cardia. This consistent with perforated gastric cardia ulcer. We talked in detail about this and recommended exploratory laparotomy. Description of Procedure Patient was taken to the OR and underwent excellent general endotracheal anesthesia. Her abdomen was then prepped and draped in sterile fashion. An upper midline incision was made and taken down to identify the fascia. Her fascia was incised sharply. The peritoneal cavity was entered there was some air which expelled upon entrance of the cavity. A good exploration was done. The duodenum was normal. The colon and small bowel were checked and were normal. She had what was fibrinous tissue in the upper part of the gastric cardia on the lesser curve, a perforated ulcer was identified. A harmonic scalpel was used to takedown the gastrocolic ligament on the lesser curve of the stomach. This freed the ulcer on the upper portion of the lesser curve. An Allis clamp was then placed on the ulcer and a RAEANN stapler was used to transect the gastric ulcer. Gastric ulcer was sent for pathologic evaluation. The abdomen was then irrigated out with warm saline. A Flako drain was placed along the subhepatic space positioned near the staple line. AN NG tube was fed into the body of the stomach. Hemostasis was noted. The fascia was then closed with running PDS suture. The skin was closed with rajendra. The drain was secured with a nylon suture. The patient tolerated procedure without complications. She was sent to the post-op recovery for a period of observation. Once criteria are met she will sent to the floor for her subsequent care. I attest to the content of the Intraoperative Record and any orders documented therein. Any exceptions are noted below.
[2024-01-25] MEDS: HYDROmorphone INJ 1 MG/ML SYRINGE IV PRN ×2 (15:20→15:51)
--- NOTE | 2024-01-25 16:37 | Anesthesiology Progress Note ---
Date of Service January 25, 2024 Anesthesia Post Procedure Vital Signs Vital Signs: Temp Pulse Pulse Resp BP BP BP 01/25/24 16:30 36.9 C 85 14 127/78 01/25/24 16:20 84 14 119/78 01/25/24 16:10 80 12 125/76 01/25/24 16:00 79 16 129/79 01/25/24 15:50 81 16 123/79 01/25/24 15:40 80 12 129/77 01/25/24 15:30 77 18 122/77 01/25/24 15:20 79 15 132/84 01/25/24 15:11 36.7 C 74 14 134/90 01/25/24 13:20 01/25/24 12:30 89 22 125/82 01/25/24 12:15 89 24 125/82 01/25/24 12:09 87 19 01/25/24 11:15 96 H 20 01/25/24 10:57 98 H 01/25/24 10:18 36.6 C 100 H 16 127/78 01/25/24 10:10 Pulse Ox O2 Del Method O2 Flow Rate 01/25/24 16:30 94 Room Air 01/25/24 16:20 94 Room Air 01/25/24 16:10 96 Room Air 01/25/24 16:00 95 Room Air 01/25/24 15:50 96 Oxymask 4 01/25/24 15:40 98 Oxymask 4 01/25/24 15:30 100 Oxymask 9 01/25/24 15:20 100 Oxymask 9 01/25/24 15:11 99 Oxymask 9 01/25/24 13:20 Room Air 01/25/24 12:30 97 Room Air 01/25/24 12:15 95 01/25/24 12:09 97 01/25/24 11:15 98 01/25/24 10:57 01/25/24 10:18 98 Room Air 01/25/24 10:10 Room Air Pain Intensity Abdomen: Pain Intensity: 5 Transfer of Care Handoff Completed per policy Notes Mental Status: alert / awake / arousable Patient Amnestic to Procedure: Yes Nausea / Vomiting: adequately controlled Pain: adequately controlled Airway Patency, RR, SpO2: stable & adequate BP & HR: stable & adequate Hydration State: stable & adequate Anesthetic Complications: no major complications apparent
[2024-01-25] MEDS ORDERED: oxyCODONE/ACETAMINOPHEN 5mg/325mg TAB PO PRN ×2 (17:32)
[2024-01-25] MEDS: PANTOprazole 80 MG in DEXTROSE 5% 100 ML IV ONE (17:40)
[2024-01-25] MEDS: MoRPHine SULFATE 4 MG/ML 1 ML CARP\\VIAL IV PRN (18:05)
[2024-01-25] MEDS: SODIUM CHLORIDE 0.9% 500 ML IV SCH (18:05)
[2024-01-25] MEDS: PIPERACILLIN/TAZOBACTAM 4.5 GM/100 ML BAG IV SCH (18:57)
[2024-01-25] MEDS: PANTOprazole 40 MG/10 ML SYR IV SCH (21:28)
[2024-01-26] MEDS: ONDANSETRON INJ 2 MG/ML 2 ML VIAL IV PRN (07:35)
[2024-01-26] MEDS: MoRPHine SULFATE 2 MG/ML CARP IV PRN (07:38)
[2024-01-26 08:12] LABS: Basophils # (auto) 0.03 K/uL (0.00-0.20); Basophils % (auto) 0.2 %; Hematocrit (blood only) 38.2 % (37.0-47.0); Hemoglobin 12.7 g/dl (12.0-16.0); Immature Granulocytes # (auto) 0.07 K/uL (0.01-0.20); Immature Granulocytes % (auto) 0.4 %; Lymphocytes # (auto) 1.31 K/uL (1.20-3.40); Lymphocytes % (auto) 7.4 %; Mean Corpuscular Hemoglobin 29.4 pg (25.0-34.0); Mean Corpuscular Hgb Conc 33.2 g/dL (32.0-36.0); Mean Corpuscular Volume 88.4 fL (80.0-100.0); Mean Platelet Volume 11.2 fL (9.4-12.4); Monocytes # (auto) 1.11 K/uL (0.11-0.59); Monocytes % (auto) 6.3 %; Neutrophils # (auto) 15.14 K/uL (1.40-6.50); Neutrophils % (auto) 85.7 %; Platelet Count 250 K/uL (130-400); RDW Coefficient of Variation 13.7 % (11.5-14.5); RDW Standard Deviation 44.6 fL (36.4-46.3); Red Blood Count 4.32 M/uL (4.20-5.40); White Blood Count 17.66 K/ul (4.8-10.8)
[2024-01-26 08:31] LABS: Albumin Globulin Ratio 1.3 (0.9-2); Albumin Level 3.8 gm/dl (3.4-5.0); BUN Creatinine Ratio 13.5 (10-20); Calcium 9.2 mg/dl (8.6-10.3); Creatinine Clr Calc Pharmacy 132.9 ml/min; Potassium 4.4 mmol/L (3.5-5.1); Total Protein 6.8 gm/dl (6.0-8.3)
--- OUTSIDE RECORDS SUMMARY | 2024-01-26 09:34 | External Medical Summary | Summary of Care ---
Author Name Unknown Organization [facility] Address [address] [facility] [place] [address] Phone [phone] Care Team Providers Care Sap Architect Name Role Phone Judie Cordero DO Primary Care Provider [phone] Reason for Visit * Reason Onset Date Comments Immunizations Medication Administration 11/07/2023 Flu an d/or Pneumo Inj Encounter Details Date Type Department Care Team (Late st Contact Info) Description 11/07/2023 9:40 AM EDT Immunization Ancillary [facility] [address] [facility] [place] [address] [facility] Flu Shot Clinic [facility] [address] [facility] [place] [address] Need for prophylactic vaccination and inoculation against influenza* Allergies Active Allergy Reactions Criticality Noted Date Comments Chlorhexidine 07/14/2018 Rash after donating blood Prednisone Rash 02/22/2011 documented as of this encounter (statuses as of 11/07/2023) Medications Medication Sig Dispensed Refills Start Date End Date Status Levonorgestrel 20 MCG/24HR Intrauterine Intrauterine Device (Mirena) Insert 1 Each into uterus once. Active Rizatriptan Benzoate 5 MG Oral TabletIndications:Faizan lubna without aura and without status migrainosus, not intractable Take 1 Tablet by mouth as needed for Migraine. May repeat in 2 hours if needed 10 Tablet 04/11/2022 Active Magnesium 400 MG Oral Tablet Take by mouth. Active Riboflavin 400 MG Oral Capsule Take 1 Capsule by mouth in the morning. Active Albuterol Sulfate HFA 108 (90 Base) MCG/ACT Inhalation Aerosol SolutionIndications:P ost-viral cough syndrome Inhale 2 Puffs by mouth every 4 hours as needed for Wheezing or Dyspnea. 18 g 06/26/2023 Active documented as of this encounter (statuses as of 11/07/2023) Active Problems Problem Noted Date Diagnosed Date History of hyperthyroidism 11/09/2015 Right thyroid nodule 11/29/2014 Overview: 6X7 mm found in thyroid US from 11/10/14 done for evaluation of low TSH Hyperthyroidism 11/09/2014 Bilateral dry eyes 11/02/2014 Dermatitis 12/23/2013 Migraine without aura 02/22/2011 Overview: Imitrex, but not when . Idiopathic scoliosis 07/16/2001 Overview: Daily pain-deals with it documented as of this encounter (statuses as of 11/07/2023) Resolved Problems Problem Noted Date Diagnosed Date Resolved Date Obesity affecting , antepartum 01/25/2017 09/11/2017 Overview: Early Glucola.--> 109, passed. Nutrition consult. Discussed sound nutrition, exercise Had flu vaccine elsewhere. Declines Quad Screen. History of macrosomia in inf ant in prior , currently 01/25/2017 09/11/2017 Overview: 9lb 6 oz (4254 gm) at 39 wks, boy. Uncomplicated , no shoulder, no significant tear. Acute bronchitis, antibiotics not indicated 02/23/2015 01/25/2017 Acute bronchitis, complicated 02/23/2015 01/25/2017 Hyperthyroidism, subclinical 11/29/2014 01/25/2017 Abnormal thyroid blood test 11/05/2014 01/25/2017 GBS (group B Streptococcus c aster), +RV culture, currently 10/27/2013 06/29/2014 Overview: Sensitive to Clindamycin, Vancomycin Encounter for supervision of other normal 04/17/2013 12/02/2013 Overview: Patient received flu vaccine. 10/23/2013 Greta Tran RN 10/30/2013 Tdap Vaccine administered per clinic protocol. Pt given VIS(vaccine information sheet) Greta Tran RN ICD-10 update of inactive term , normal first 10/21/201211/12 Overview: Conceived on clomid Acute bronchitis, complicated 09/28/2009 09/21/2010 documented as of this encounter (statuses as of 11/07/2023) Immunizations Name Administration Dates Next Due COVID-19 mRNA, LNP-s, No Pre serve, 2-Dose Series (HistoPathway) 04/30/2020,04/09/2020 COVID-19, LNP-s, No Preserve , Corona-sucrose, Ages 12+ (Pfizer) 01/30/2021 Covid-19, Mrna, Lnp-s, Pf, B ivalent, 30 Mcg, IM, 12 yrs and above (HistoPathway) 12/26/2022 HPV Vaccine, 4-Valent 04/27/2011,02/22/2011 Seasonal Influenza Virus Vac cine, Unspecified Formulation 11/10/2020,11/20/2018 Seasonal Influenza, PF, 6 M & above, IM , (FluLaval or Fluzone) 12/18/2022,11/06/2019 Seasonal Influenza, Quadriva lent, No Preserve, IM 12/16/2017 Seasonal Influenza, Recombin ant, Trivalent, PF (Flublock) 11/04/2015 Seasonal Influenza, Trivalen t, (IIV3), PF, (Fluzone) 11/07/2023 Seasonal Influenza, Trivalen t, (IIV3), with Preserv, (Fluzone) 11/25/2014,10/23/2013,11/25/2010 TDAP (age 10 and older)(Boostrix) 06/19/2017, TDAP, Age 7 and older, IM (Adacel) 10/19/2008 documented as of this encounter Social History Tobacco Use Types Packs/Day Years Used Date Smoking Tobacco: Never Smokeless Tobacco: Never Alcohol Use Standard Drinks/Week Comments Yes 0 (1 standard drink = 0.6 oz pur e alcohol) occ PHQ-2 Answer Date Recorded PHQ Adult Total Score 0 04/11/2022 Hunger Vital Sign Answer Date Recorded Worried About Running Out of Food in the Last Ye ar Never true 09/05/2018 Ran Out of Food in the Last Year Never true 09/05/2018 Utilities Answer Date Recorded Do you have trouble paying y our heating, water, or electric bill? (Adult - for ages 18 years and over) Not on file 07/30/2023 Is your family able to pay t he heat, water, or electric bill? (Household - for ages 0-17 years) Not on file 07/30/2023 Does your family have access to good internet? (Household - for ages 0-17 years) Not on file 07/30/2023 Social Connections Answer Date Recorded How often do you feel lonely or isolated from those around you? (Adult - for ages 18 years and over) Not on file 07/30/2023 Sex and Gender Information Value Date Recorded Sex Assigned at Not on file Gender Identity Not on file Sexual Orientation Not on file Job Start Date Occupation Industry Not on file Not on file Not on file documented as of this encounter Patient Instructions * Patient Instructions* Valentina Santos LPN - 11/07/2023 9:40 AM EDT ~~PATIENT INSTRUCTIONS FOR FLU SHOT~~ Possible side effects of influenza vaccine, (flu shot), are usually mild and include: 1. Soreness or redness at injection site 2. Low grade fever 3. Body aches You may use Tylenol/Acetaminophen as needed for these symptoms. LET YOUR DOCTOR KNOW IMMEDIATELY IF YOU HAVE DIFFICULTY BREATHING OR SWALLOWING, EXPERIENCE ITCHINGOF FEET OR HANDS, HAVE SWELLING OF EYES, FACE OR INSIDE OF NOSE. documented in this encounter Progress Notes * Valentina Santos LPN - 11/07/2023 9:40 AM EDT PRE - ADMINISTRATION DOCUMENTATION Are you experiencing any cold symptoms or fever? No Have you had Guillain-[place] Syndrome (an illness that causes paralysis) within the last 6 weeks? No Have you had the flu shot in the past? YES Have you ever had a reaction to the flu shot? No Valentina Santos LPN, 11/07/2023 9:40 AM Immunization Administration Documentation Time Out Procedure Performed: Yes Patient Identified (Ask Name/Date of ): Yes Does the patient have a fever greater than 101 degrees today? No Patient allergic to latex? No VFC Stock: No Immunization(s) verified: Yes, Immunization Name: Flu, VIS Sheet(s) given: Yes Verified Side and Site: Yes Verified Shot(s) with Parent(s)/Patient: Yes documented in this encounter Plan of Treatment Upcoming Encounters Date Type Department Care Team (Late st Contact Info) Description 11/22/2023 11:00 AM EDT Office Visit Podiatry [facility] [address] [facility] [place] [address] Janette Hopson DPM [address] [facility] [place] [address] Health Maintenance Due Date Last Done Comments Hepatitis C Screening 2004 Hepatitis B Vaccine (1 of 3 - 19+ 3-dose series) 2005 HPV (Gardasil) Vaccine (3 - 3-dose series) 08/23/2011 04/27/2011, 02/22/2011 Depression Screening 04/12/2023 04/11/2022 COVID-19 Vaccine ( season) 2023 12/26/2022, 11/03/2021, 01/30/2021, Additional history exists Pap Smear 01/17/2025 01/17/2022, 07/12, 07/04/2016, Additional history exists Diabetes Screening 11/14/2025 11/14/2022, 11/02/2014 Cervical Cancer Screening 01/17/2027 HPV/Co-Test 01/17/2027 01/17/2022 DTap/Tdap Vaccines (4 - Td or Tdap) 06/20/2027 06/19/2017, 10/30/2013, 10/19/2008 Influenza Vaccine (FLU shot) Completed , 12/18/2022, 12/18/2022, Additional history exists MENINGOCOCCAL (MENACTRA/MENVEO) Aged Out No longer eligible based on patient's age to complete this topic Pneumococcal Vaccine: Pediatrics (0 to 5 Years) and At-Risk Patients (6 to 64 Years) Aged Out No longer eligible based on patient's age to complete this topic documented as of this encounter Medical Devices Not on filedocumented as of this encounter Visit Diagnoses Diagnosis Need for prophylactic vaccination and inoculation against influenza- Primary documented in this encounter Care Teams Sap Architect Relationship Specialty Start Date End Date Judie Cordero DO [address] [place] [id number] PCP - General Family Medicine 06/19/17 documented as of this encounter
--- OUTSIDE RECORDS SUMMARY | 2024-01-26 09:34 | External Medical Summary | Summary of Care ---
Author Name Unknown Organization [facility] Address [address] [place] [address] Phone [phone] Care Team Providers Care Data Collection Interviewer Name Role Phone MykeJudie geiger Primary Care Provider [phone] Encounter Details Date Type Department Care Team (Late st Contact Info) Description 12/31/2023 Orders Only Rheumatology [place] [address] [place] [address] Ermias Pepe MD [facility] [address] [place] [address] Allergies Active Allergy Reactions Criticality Noted Date Comments Chlorhexidine 07/14/2018 Rash after donating blood Prednisone Rash 02/22/2011 documented as of this encounter (statuses as of 12/31/2023) Medications Levonorgestrel 20 MCG/24HR Intrauterine Intrauterine Device (Mirena) Insert 1 Each into uterus once. Active Rizatriptan Benzoate 5 MG Oral TabletIndications :Migraine without aura and without status migrainosus, not intractable Take 1 Tablet by mouth as needed for Migraine. May repeat in 2 hours if needed 10 Tablet 3 Active Magnesium 400 MG Oral Tablet Take by mouth. Active Riboflavin 400 MG Oral Capsule Take 1 Capsule by mouth in the morning. Active Meloxicam 15 MG Oral Tablet (Mobic) Take 1 Tablet by mouth daily. 30 Tablet 1 11/13/202 4 Active documented as of this encounter (statuses as of 12/31/2023) Active Problems Problem Noted Date Diagnosed Date History of hyperthyroidism 11/09/2015 Right thyroid nodule 11/29/2014 Overview (11/29/2014): 6X7 mm found in thyroid US from 11/10/14 done for evaluation of low TSH Hyperthyroidism 11/09/2014 Bilateral dry eyes 11/02/2014 Dermatitis 12/23/2013 Migraine without aura 02/22/2011 Overview (01/25/2017): Imitrex, but not when . Idiopathic scoliosis 07/16/2001 Overview (02/22/2011): Daily pain-deals with it documented as of this encounter (statuses as of 12/31/2023) Resolved Problems Problem Noted Date Diagnosed Date Resolved Date Obesity affecting , antepartum 01/25/2017 09/11/2017 Overview (03/22/2017): Early Glucola.--> 109, passed. Nutrition consult. Discussed sound nutrition, exercise Had flu vaccine elsewhere. Declines Quad Screen. History of macrosomia in inf ant in prior , currently 01/25/2017 09/11/2017 Overview (01/25/2017): 9lb 6 oz (4254 gm) at 39 wks, boy. Uncomplicated , no shoulder, no significant tear. Acute bronchitis, antibiotics not indicated 02/23/2015 01/25/2017 Acute bronchitis, complicated 02/23/2015 01/25/2017 Hyperthyroidism, subclinical 11/29/2014 01/25/2017 Abnormal thyroid blood test 11/05/2014 01/25/2017 GBS (group B Streptococcus c arrier), +RV culture, currently 10/27/2013 06/29/2014 Overview (10/27/2013): Sensitive to Clindamycin, Vancomycin Encounter for supervision of other normal 04/17/2013 12/02/2013 Overview (06/14/2015): Patient received flu vaccine. 10/23/2013 Greta Tran RN 10/30/2013 Tdap Vaccine administered per clinic protocol. Pt given VIS(vaccine information sheet) Greta Tran RN ICD-10 update of inactive term , normal first 10/21/201211/12 Overview (10/21/2012): Conceived on clomid Acute bronchitis, complicated 09/28/2009 09/21/2010 documented as of this encounter (statuses as of 12/31/2023) Immunizations Name Administration Dates Next Due COVID-19 mRNA, LNP-s, No Pre serve, 2-Dose Series (WordWatch) 04/30/2020,04/09/2020 COVID-19, LNP-s, No Preserve , Corona-sucrose, Ages 12+ (Pfizer) 01/30/2021 Covid-19, Mrna, Lnp-s, Pf, B ivalent, 30 Mcg, IM, 12 yrs and above (WordWatch) 12/26/2022 HPV Vaccine, 4-Valent 04/27/2011,02/22/2011 Seasonal Influenza Vac., MDV , IM, 0.5 mL (Fluzone) 11/25/2014,10/23/2013,11/25/2010 Seasonal Influenza Virus Vac cine, Unspecified Formulation 11/10/2020,11/20/2018 Seasonal Influenza, PF, 6 M & above, IM , (FluLaval or Fluzone) 12/18/2022,11/06/2019 Seasonal Influenza, Quadriva lent, No Preserve, IM 12/16/2017 Seasonal Influenza, Recombin ant, Trivalent, PF (Flublock) 11/04/2015 Seasonal Influenza, Trivalen t, (IIV3), PF, (Fluzone) 11/07/2023 TDAP (age 10 and older)(Boostrix) 06/19/2017, TDAP, [...] in the Last Year Never true 09/05/2018 Comments No Sex and Gender Information Value Date Recorded Sex Assigned at Female 12/22/2023 7:20 PM EST Legal Sex Female 5:54 AM EST Gender Identity Female 12/22/2023 7:20 PM EST Sexual Orientation Straight 12/22/2023 7: 20 PM EST Occupation Industry Job Start Date Job End Date [employer] Not on file Not on file Not on file documented as of this encounter Plan of Treatment Upcoming Encounters Date Type Department Care Team (Late st Contact Info) Description 06/30/2024 8:40 AM EDT Office Visit Rheumatology [facility] [address] [place] [address] Ermias Pepe MD [address] [place] [address] Health Maintenance Due Date Last Done Comments Hepatitis C Screening 2004 Hepatitis B Vaccine (1 of 3 - 19+ 3-dose series) 2005 HPV (Gardasil) Vaccine (3 - 3-dose series) 08/23/2011 04/27/2011, 02/22/2011 Depression Screening 04/12/2023 04/11/2022 COVID-19 Vaccine ( season) 2023 12/26/2022, 11/03/2021, 01/30/2021, Additional history exists Pap Smear 01/17/2025 01/17/2022, 07/12, 07/04/2016, Additional history exists Diabetes Screening 12/12/2026 12/13/2023, 1 , 11/02/2014 Cervical Cancer Screening 01/17/2027 HPV/Co-Test 01/17/2027 [...] Not on filedocumented as of this encounter Care Teams Data Collection Interviewer Relationship Specialty Start Date End Date Judie Cordero DO [address] [place] [address] PCP - General Family Medicine 06/19/17 documented as of this encounter
--- OUTSIDE RECORDS SUMMARY | 2024-01-26 09:34 | External Medical Summary | Summary of Care ---
Author Name Unknown Organization [facility] Address [address] [place] [address] Phone [phone] Care Team Providers Care Gerentological Physiotherapist Name Role Phone Judie Cordero DO Primary Care Provider [phone] Reason for Visit * Reason Comments NEW PATIENT Referred by Judie dalton for swollen itchy hands, joint pain, irregular bloodwork * Evaluate & Treat - Unlimited Visits (Within 10 days (routine)) - Authorized Specialty Diagnoses / Procedures Referred By Rafal yang Referred To Contact Rheumatology Diagnoses CRP elevated Arthralgia of hands, bilateral Judie Cordero DO [address] [place] [address] Phone: tel: fax: Referral ID Status Reason Start Date Expiration Date Visits Requested Visits Authorized [id number] Authorized Specialty Services Required 12/20/[id number] Encounter Details Date Type Department Care Team (Latest Contact Info) Description 12/25/2023 10:00 AM EST Office Visit Rheumatology [place] [id number] [facility] [place] [address] Ermias Pepe MD [address] [place] [address] Inflammatory polyarthritis (HCC)* Allergies Active Allergy Reactions Criticality Noted Date Comments Chlorhexidine 07/14/2018 Rash after donating blood Prednisone Rash 02/22/2011 documented as of this encounter (statuses as of 12/25/2023) Medications Levonorgestrel 20 MCG/24HR Intrauterine Intrauterine Device (Mirena) Insert 1 Each into uterus once. Active Rizatriptan Benzoate 5 MG Oral TabletIndication s:Migraine without aura and without status migrainosus, not intractable Take 1 Tablet by mouth as needed for Migraine. May repeat in 2 hours if needed 10 Tablet 3 Active Magnesium 400 MG Oral Tablet Take by mouth. Active Riboflavin 400 MG Oral Capsule Take 1 Capsule by mouth in the morning. Active Albuterol Sulfate HFA 108 (90 Base) MCG/ACT Inhalation Aerosol SolutionIndicati ons:Post-viral cough syndrome Inhale 2 Puffs by mouth every 4 hours as needed for Wheezing or Dyspnea. 18 g 4 12/25/19 24 Discontinu ed(Medicat ion List Clean Up) documented as of this encounter (statuses as of 12/25/2023) Active Problems Problem Noted Date Diagnosed Date [...] as of this encounter (statuses as of 12/25/2023) Resolved Problems Problem Noted Date Diagnosed Date [...] as of this encounter (statuses as of 12/25/2023) Immunizations Name Administration Dates Next Due COVID-19 mRNA, LNP-s, No Pre serve, 2-Dose Series ([employer]) 04/30/2020,04/09/2020 COVID-19, LNP-s, No Preserve , Corona-sucrose, Ages 12+ (Pfizer) 01/30/2021 Covid-19, Mrna, Lnp-s, Pf, B ivalent, 30 Mcg, IM, 12 yrs and above ([employer]) 12/26/2022 HPV Vaccine, 4-Valent 04/27/2011,02/22/2011 Seasonal Influenza [...] Date Smoking Tobacco: Never Smokeless Tobacco: Never Tobacco Cessation:Counseling Given: Not Answered Alcohol Use Standard Drinks/Week Comments Yes 0 [...] on file documented as of this encounter Last Filed Vital Signs Vital Sign Reading Time Taken Comments Blood Pressure - - Pulse - - Temperature 36.6 C (97.8 F) 12/25/2023 9:54 AM ES T Respiratory Rate - - Oxygen Saturation - - Inhaled Oxygen Concentration - - Weight 108 kg (238 lb) 12/25/2023 9:54 AM EST Height - - Body Mass Index 36.19 06/08/2023 12:50 PM EDT documented in this encounter Progress Notes * Ermias Pepe MD - 12/25/2023 9:58 AM EST Reason for visit: Rheumatology consultation for arthritis Referring Provider: Judie Cordero DO HPI: Betzy Tolliver is here at the request of Judie Cordero DO for further evaluation of arthritis. Betzy Tolliver pmhx is listed below. She repotrs about 1 month ago she reports she developed red/inflamed fingers of both hands. At that time it was isolated to her hands. She also noted some itching to her hands - this would be various spots especially where there was swelling. She noted gripstrength issues. She had seen her PCP office and had labs done. These showed a low + lyme screen but western blot was normal. Her CRP was elevated at 13. They had ordered a sed rate but it was not done. Her blood counts and kidney function studies were normal. She was not treated for Lyme. She started to note increasing knee pain as of late. She also reports that her plantar fasciitis that had responded to a steroid injection is a little more problematic again. She reports that this past Fridayshe needed to use a book as a crutch to help walk up the stairs. She has not notice any swelling toher knees. This swelling in her hands have improved. She does have some pictures on her phone in his shows some swelling at the right thumb MCP as compared to the left thumb. She also had some areas of erythema on the palms of her hands and on the palmar aspect of her MCPs. There is no family history of autoimmune diseases. She denies being ill prior to her arthritis starting. She never had any issues with her feet or ankles. She did take some ibuprofen but not consistently. She is not sure if it really helped. She does have a history of dry eyes. Musculoskeletal ROS: . Abnormal: joint pain and joint swelling . AM stiffness (hours): 0.5 . Pain scale (0-10): 3 Other ROS: . Constitutional: normal . Head normal . Eyes: dryness . Ears, nose, throat, mouth: normal . Cardiovascular: normal . Respiratory: normal . Gastrointestinal: normal . Genitourinary: normal . Skin: normal All other ROS reviewed and negative Current Outpatient Medications Medication Sig Dispense Refill Magnesium 400 MG Oral Tablet Take by mouth. Riboflavin 400 MG Oral Capsule Take 1 Capsule by mouth in the morning. Rizatriptan Benzoate 5 MG Oral Tablet Take 1 Tablet by mouth as needed for Migraine. May repeat in 2 hours if needed 10 Tablet 0 Levonorgestrel 20 MCG/24HR Intrauterine Intrauterine Device (Mirena) Insert 1 Each into uterus once. No current facility-administered medications for this visit. Past Medical History: Diagnosis Date History of hyperthyroidism 11/09/2015 Idiopathic scoliosis Migraine without aura 02/22/2011 failed imitrex, and prednisone Past Surgical History: Procedure Laterality Date DENTAL SURGERY PROCEDURE NEC wisdom teeth REMOVE TONSILS & ADENOIDS, UNDER 12 Family History Problem Relation Name Age of Onset Diabetes Mother Hypertension Mother not currently on medication Hypertension Father No Past Hx Sister No Past Hx Sister No Past Hx Sister Cervical Cancer Grandmother (Maternal) Diabetes Grandfather (Paternal) Hypertension Grandfather (Paternal) No Known Problems Daughter No Known Problems Daughter Cervical Cancer Aunt (Maternal) Social History Social History Tobacco Use Smoking status: Never Smokeless tobacco: Never Vaping Use Vaping status: Never Used Substance Use Topics Alcohol use: Yes Comment: occ Drug use: No Physical Exam Filed Vitals: 12/25/23 0954 Temp: 36.6 C (97.8 F) TempSrc: Infrared Weight: 108 kg (238 lb) General: alert, healthy, no distress, and well nourished HENT: normocephalic, external ears normal, no mucosal erythema, no mucosal edema, moist mucosa, no oral ulcers Eye Exam: PERRL, EOMI, conjunctiva are pink and non-injected, sclera clear Neck: supple, no adenopathy, thyroid normal size, non-tender, without nodularity Lymph: no palpable lymphadenopathy Heart: regular rate & rhythm, no murmur, and no gallops Lungs: clear to auscultation , no rales, wheezes or rhonchi Abdomen: abdomen soft, non-tender, and normal bowel sounds Extremities: no clubbing, no cyanosis Musculoskeletal Exam: Has patellar crepitus for both knees but overall normal extension and flexion of the knees Has hypermobility noted at the knees and elbows No definite synovitis or dactylitis noted to the hands Question trace effusion to the right knee greater than left Assessment (M06.4) Inflammatory polyarthritis (HCC) (primary encounter diagnosis) You do wonder about some type of inflammatory arthritis such as a seronegative spondyloarthropathy verses seropositive/seronegative rheumatoid verses reactive arthritis. I would favor more of a reactive syndrome given the fact that her hand symptoms have improved over the last month with little to no management. Will do some additional lab studies today and discussed daily anti-inflammatory use. Once labs are back will contact her about further treatment options if needed. Plan 1. Labs ordered and slips given to her 2. Discussed sruu-hdz-eyudure anti-inflammatory use on a regular basis for the next week to 10 days 3. Will contact her with lab results and further recommendations 4. Thank you for the consult and involving me in this patient's care. 5. Copy of today's note to Dr Cordero, 6. Follow up in 6 months or sooner pending course Ermias Pepe MD Department of Rheumatology [facility] [phone] I spent a total of 40-54 minutes (exact time 50 mins) on the date of service in preparation, delivery, and documentation of the care provided to Betzy oTlliver excluding any time spent in the performance of separately billed services. documented in this encounter Nursing Notes * Florence Stephenson LPN - 12/25/2023 9:53 AM EST Chief Complaint Patient presents with NEW PATIENT Referred by Judie Marin for swollen itchy hands, joint pain, irregular bloodwork documented in this encounter Plan of Treatment Upcoming Encounters Date Type Department Care Team (Late st Contact Info) Description 06/30/2024 8:40 AM EDT Office Visit Rheumatology [address] [place], [place] [address] Ermias Pepe MD [facility] [address] [facility] [place], [place] [address] Scheduled Orders Name Type Priority Associated Diagnoses Orde r Schedule CYCLIC CITRULLINATED PEPTIDE IGG ANTIBODY Lab Routine Inflammatory polyarthritis (HCC) Ordered: 12/25/2023 RHEUMATOID FACTOR Lab Routine Inflammatory polyarthritis (HCC) Ordered: 12/25/2023 ERYTHROCYTE SEDIMENTATION RATE (ESR) Lab Routine Inflammatory polyarthritis (HCC) Ordered: 12/25/2023 PARVOVIRUS B19 ANTIBODIES (IGG, IGM) Lab Routine Inflammatory polyarthritis (HCC) Ordered: 12/25/2023 Health Maintenance Due Date Last Done Comments [...] as of this encounter Visit Diagnoses Diagnosis Inflammatory polyarthritis (HCC)- Primary Unspecified inflammatory polyarthropathy documented in this encounter Care Teams Gerentological Physiotherapist Relationship Specialty Start Date End Date Judie Cordero DO [address] [place] [address] PCP - General Family Medicine 06/19/17 documented as of this encounter
--- OUTSIDE RECORDS SUMMARY | 2024-01-26 09:34 | External Medical Summary | Summary of Care ---
Author Name Unknown Organization [facility] Address [address] [place] [address] Phone [phone] Care Team Providers Care Medical Territory Manager Name Role Phone Judie Cordero DO Primary Care Provider [phone] Encounter Details Date Type Department Care Team (Late st Contact Info) Description 12/20/2023 Orders Only General Internal Medicine [facility] [place] [address] [facility] [place] [address] Judie Marin PA-C [address] [facility] [place] [address] Finger swelling; Erythema of skin; Arthralgia of both hands Allergies Active Allergy Reactions Criticality Noted Date Comments Chlorhexidine 07/14/2018 Rash after donating blood Prednisone Rash 02/22/2011 documented as of this encounter (statuses as of 12/20/2023) Medications Levonorgestrel 20 MCG/24HR Intrauterine Intrauterine Device [...] HFA 108 (90 Base) MCG/ACT Inhalation Aerosol SolutionIndicatio ns:Post-viral cough syndrome Inhale 2 Puffs by mouth every 4 hours as needed for Wheezing or Dyspnea. 18 g Active documented as of this encounter (statuses as of 12/20/2023) Active Problems Problem Noted Date Diagnosed Date [...] as of this encounter (statuses as of 12/20/2023) Resolved Problems Problem Noted Date Diagnosed Date [...] as of this encounter (statuses as of 12/20/2023) Immunizations Name Administration Dates Next Due COVID-19 mRNA, LNP-s, No Pre serve, 2-Dose Series ([employer]) 04/30/2020,04/09/2020 COVID-19, LNP-s, No Preserve , Corona-sucrose, Ages 12+ (Pfizer) 01/30/2021 Covid-19, Mrna, Lnp-s, Pf, B ivalent, 30 Mcg, IM, 12 yrs and above ([employer]) 12/26/2022 HPV Vaccine, 4-Valent 04/27/2011,02/22/2011 Seasonal Influenza [...] years and over) Not on file 07/30/2023 Comments No Sex and Gender Information Value Date Recorded Sex Assigned at Not on file Legal Sex Female 5:54 AM EST Gender Identity Not on file Sexual Orientation Not on file Occupation Industry Job Start Date Job End Date [employer] Not on file Not on file Not on file documented as of this encounter Plan of Treatment Health Maintenance Due Date Last Done Comments [...] Not on filedocumented as of this encounter Procedures Procedure Name Priority Date/Time Associated Diagnosis Comments DIFFERENTIAL, AUTOMATED Routine 12/13/2023 Erythema of skin LYME DISEASE ANTIBODY SCREEN WITH REFLEX TO CONFIRMATION Routine 12/13/2023 Arthralgia of both hands Finger swelling CRP (INFLAMMATORY MARKER) Routine 12/13/2023 Arthralgia of both hands Finger swelling Erythema of skin BASIC METABOLIC PANEL Routine 12/13/2023 Finger swelling documented in this encounter Results * CRP (INFLAMMATORY MARKER) (12/13/2023) Blood Venous blood specimen / Unknown 12/13/2023 Judie Marin PA-C LAB BLOOD ORDERAB LES Final Result * LYME DISEASE ANTIBODY SCREEN WITH REFLEX TO CONFIRMATION (12/13/2023) Blood Venous blood specimen / Unknown 12/13/2023 Judie Marin PA-C LAB BLOOD ORDERAB LES Final Result OUTSIDE LAB (SEE SCANNED REPORT) * CBC WITH WBC DIFFERENTIAL AND ANEMIA REFLEX WORKUP (12/13/2023) HGB 12.7 11.7 - 15.5 G/DL OUTSIDE LAB (SEE SCANNED REPORT) Blood Venous blood specimen / Unknown 12/13/2023 Judie Marin PA-C LAB BLOOD ORDERAB LES Final Result OUTSIDE LAB (SEE SCANNED REPORT) * BASIC METABOLIC PANEL (12/13/2023) CREATININE 0.75 0.50 - 0.97 MG/DL OUTSIDE LAB (SEE SCANNED REPORT) EGFR 105 > OR = 60 ML/MIN/1.73 M2 OUTSIDE LAB (SEE SCANNED REPORT) POTASSIUM 4.3 3.5 - 5.3 MMOL/L OUTSIDE LAB (SEE SCANNED REPORT) GLUCOSE 90 65 - 139 MG/DL OUTSIDE LAB (SEE SCANNED REPORT) Blood Venous blood specimen / Unknown 12/13/2023 Judie Marin PA-C LAB BLOOD ORDERAB LES Final Result OUTSIDE LAB (SEE SCANNED REPORT) documented in this encounter Visit Diagnoses Diagnosis Finger swelling Swelling of limb Erythema of skin Unspecified erythematous condition Arthralgia of both hands documented in this encounter Care Teams Medical Territory Manager Relationship Specialty Start Date End Date Judie Cordero DO [address] [facility] [place] [address] PCP - General Family Medicine 06/19/17 documented as of this encounter
--- OUTSIDE RECORDS SUMMARY | 2024-01-26 09:34 | External Medical Summary | Summary of Care ---
Author Name Unknown Organization [facility] Address [address] [place] [address] Phone [phone] Care Team Providers Care Feed Handler Name Role Phone Judie Cordero DO Primary Care Provider [phone] Reason for Visit * Reason Comments Acute Patient reports her hands are extremely itchy and are painful after itching or with rubbing motions. Symptoms started originally on . Encounter Details Date Type Department Care Team (Late st Contact Info) Description 11/25/2023 4:40 PM EDT Office Visit General Internal Medicine [facility] [address] [facility] [place] [address] Judie Marin PA-C [address] [facility] [place] [address] Arthralgia of both hands*; Finger swelling; Erythema of skin Allergies Active Allergy Reactions Criticality Noted Date Comments Chlorhexidine 07/14/2018 Rash after donating blood Prednisone Rash 02/22/2011 documented as of this encounter (statuses as of 11/25/2023) Medications Medication Sig Dispensed Refills Start Date [...] as of this encounter (statuses as of 11/25/2023) Active Problems Problem Noted Date Diagnosed Date [...] as of this encounter (statuses as of 11/25/2023) Resolved Problems Problem Noted Date Diagnosed Date [...] c arrier), +RV culture, currently 10/27/2013 06/29/2014 Overview: Sensitive [...] as of this encounter (statuses as of 11/25/2023) Immunizations Name Administration Dates Next Due COVID-19 mRNA, LNP-s, No Pre serve, 2-Dose Series ([employer]) 04/30/2020,04/09/2020 COVID-19, LNP-s, No Preserve , Corona-sucrose, Ages 12+ (Pfizer) 01/30/2021 Covid-19, Mrna, Lnp-s, Pf, B ivalent, 30 Mcg, IM, 12 yrs and above ([employer]) 12/26/2022 HPV Vaccine, 4-Valent 04/27/2011,02/22/2011 Seasonal Influenza [...] Sign Reading Time Taken Comments Blood Pressure 120/74 11/25/2023 4:37 PM EDT Pulse 70 11/25/2023 4:37 PM EDT Temperature 37.2 C (98.9 F) 11/25/2023 4:37 PM ED T Respiratory Rate - - Oxygen Saturation 99% 11/25/2023 4:37 PM EDT Inhaled Oxygen Concentration - - Weight 110 kg (242 lb 9.6 oz) 11/25/2023 4:37 PM EDT Height - - Body Mass Index 36.89 06/08/2023 12:50 PM EDT documented in this encounter Progress Notes * Judie Marin PA-C - 11/25/2023 4:43 PM EDT Images from the original note were not included. History of Present Illness Betzy Tolliver is a 38 year old female that presents for Acute (Patient reports her hands are extremely itchy and are painful after itching or with rubbing motions. Symptoms started originally on . ) Pt here today for an acute visit with c/o pain, edema, and redness of beverly hands. Began abruptly last . Denies any new products or known exposures. Skin felt sensitive and warm to touch. [place] OK to wash hands, but to dry them off was uncomfortable. Fingers felt tight but denies joint stiffness. Denies family hx of autoimmune diseases. Denies any other systemic symptoms. Currently she is having no symptoms. Review of Systems: See HPI for pertinent positives. All other review of systems is negative. Physical Exam Vitals: 11/25/23 1637 Temp: 37.2 C (98.9 F) Pulse: 70 SpO2: 99% BP: 120/74 Physical Exam Constitutional: General: She is not in acute distress. Appearance: She is not diaphoretic. HENT: Mouth/Throat: Mouth: Mucous membranes are moist. Pharynx: Oropharynx is clear. Cardiovascular: Rate and Rhythm: Normal rate and regular rhythm. Pulmonary: Effort: Pulmonary effort is normal. Breath sounds: Normal breath sounds. Musculoskeletal: General: No swelling or tenderness. Cervical back: Normal range of motion and neck supple. Skin: General: Skin is warm and dry. Neurological: General: No focal deficit present. Mental Status: She is alert. Mental status is at baseline. I have reviewed the following results: Assessment and Plan Arthralgia of both hands Unclear etiology of symptoms at this time. Will check labs to eval for autoimmune or infectious sources of symptoms. Discussed can use hydrocortisone cream PRN for itching. Will notify of lab resultswhen available. Pt will go to [facility] to have these done. - LYME DISEASE ANTIBODY SCREEN WITH REFLEX TO CONFIRMATION; Future - ERYTHROCYTE SEDIMENTATION RATE (ESR); Future - CRP (INFLAMMATORY MARKER); Future Finger swelling - BASIC METABOLIC PANEL; Future - LYME DISEASE ANTIBODY SCREEN WITH REFLEX TO CONFIRMATION; Future - ERYTHROCYTE SEDIMENTATION RATE (ESR); Future - CRP (INFLAMMATORY MARKER); Future Erythema of skin - CBC WITH WBC DIFFERENTIAL AND ANEMIA REFLEX WORKUP; Future - ERYTHROCYTE SEDIMENTATION RATE (ESR); Future - CRP (INFLAMMATORY MARKER); Future Wrap-Up Follow Up: Return if symptoms worsen or fail to improve. Time: I spent a total of 30-39 minutes (exact time 34 mins) on the date of service in preparation, delivery, and documentation of the care provided to Betzy Tolliver excluding any time spent in the performance of separately billed services. documented in this encounter Nursing Notes * Kori Keyes, MED ASSIST - 11/25/2023 4:40 PM EDT Chief Complaint Patient presents with Acute Patient reports her hands are extremely itchy and are painful after itching or with rubbing motions. Symptoms started originally on . documented in this encounter Plan of Treatment Scheduled Orders Name Type Priority Associated Diagnoses Orde r Schedule BASIC METABOLIC PANEL Lab Routine Finger swelling Expected: 11/25/2023 (Approximate), Expires: 11/24/2024 CBC WITH WBC DIFFERENTIAL AND ANEMIA REFLEX WORKUP Lab Routine Erythema of skin Expected: 11/25/2023 (Approximate), Expires: 11/24/2024 LYME DISEASE ANTIBODY SCREEN WITH REFLEX TO CONFIRMATION Lab Routine Arthralgia of both hands Finger swelling Expected: 11/25/2023 (Approximate), Expires: 11/24/2024 ERYTHROCYTE SEDIMENTATION RATE (ESR) Lab Routine Arthralgia of both hands Finger swelling Erythema of skin Expected: 11/25/2023 (Approximate), Expires: 11/24/2024 CRP (INFLAMMATORY MARKER) Lab Routine Arthralgia of both hands Finger swelling Erythema of skin Expected: 11/25/2023 (Approximate), Expires: 11/24/2024 Health Maintenance Due Date Last Done Comments Hepatitis C Screening 2004 Hepatitis B Vaccine (1 of 3 - 19+ 3-dose series) 2005 HPV ([employer]) Vaccine (3 - 3-dose series) 08/23/2011 04/27/2011, 02/22/2011 Depression Screening 04/12/2023 04/11/2022 COVID-19 Vaccine ( season) 2023 12/26/2022, 11/03/2021, 01/30/2021, Additional history exists Postponed from 10/13/2023 (Unavailable) Pap Smear 01/17/2025 01/17/2022, 07/12, 07/04/2016, Additional history exists Diabetes Screening 11/14/2025 11/14/2022, 11/02/2014 Cervical Cancer Screening 01/17/2027 HPV/Co-Test 01/17/2027 01/17/2022 DTap/Tdap Vaccines (4 - Td or Tdap) 06/20/2027 06/19/2017, 10/30/2013, 10/19/2008 Influenza Vaccine (FLU shot) Completed 11/07/2023, 12/18/2022, 12/18/2022, Additional history exists MENINGOCOCCAL (MENACTRA/MENVEO) [...] as of this encounter Visit Diagnoses Diagnosis Arthralgia of both hands- Primary Finger swelling Swelling of limb Erythema of skin Unspecified erythematous condition documented in this encounter Care Teams Feed Handler Relationship Specialty Start Date End Date Judie Cordero DO [address] [facility] [place] [address] PCP - General Family Medicine 06/19/17 documented as of this encounter
--- OUTSIDE RECORDS SUMMARY | 2024-01-26 09:34 | External Medical Summary | Summary of Care ---
Author Name Unknown Organization [facility] Address [address] [facility] [place] [address] Phone [phone] Care Team Providers Care Operations Scheduler Name Role Phone Judie Cordero DO Primary Care Provider [phone] Encounter Details Date Type Department Care Team (Late st Contact Info) Description 11/29/2023 Orders Only PATIENT PORTAL DO NOT DELETE THIS DEPT USED BY [place] [address] Allergies Active Allergy Reactions Criticality Noted Date Comments Chlorhexidine 07/14/2018 Rash after donating blood Prednisone Rash 02/22/2011 documented as of this encounter (statuses as of 11/29/2023) Medications Medication Sig Dispensed Refills Start Date [...] as of this encounter (statuses as of 11/29/2023) Active Problems Problem Noted Date Diagnosed Date [...] as of this encounter (statuses as of 11/29/2023) Resolved Problems Problem Noted Date Diagnosed Date [...] 11/05/2014 01/25/2017 GBS (group B Streptococcus c arrmikel), +RV culture, currently 10/27/2013 06/29/2014 Overview: Sensitive [...] as of this encounter (statuses as of 11/29/2023) Immunizations Name Administration Dates Next Due COVID-19 mRNA, LNP-s, No Pre serve, 2-Dose Series ([employer]) 04/30/2020,04/09/2020 COVID-19, LNP-s, No Preserve , Corona-sucrose, Ages 12+ ([employer]) 01/30/2021 Covid-19, Mrna, Lnp-s, Pf, B ivalent, 30 Mcg, IM, 12 yrs and above ([employer]) 12/26/2022 HPV Vaccine, 4-Valent 04/27/2011,02/22/2011 Seasonal Influenza [...] filedocumented as of this encounter Care Teams Operations Scheduler Relationship Specialty Start Date End Date Judie Cordero DO [address] [place] [address] PCP - General Family Medicine 06/19/17 documented as of this encounter
--- OUTSIDE RECORDS SUMMARY | 2024-01-26 09:34 | External Medical Summary | Summary of Care ---
Author Name Unknown Organization [facility] Address [address] [place] [address] Phone [phone] Care Team Providers Care Assembler Mechanical Ordnance Name Role Phone Judie Cordero DO Primary Care Provider [phone] Encounter Details Date Type Department Care Team (Late st Contact Info) Description 12/13/2023 Result Scan Unspecified Department Judie Marin PA-C [address] [place] [address] <No scans attached> Allergies Active Allergy Reactions Criticality Noted Date [...] for Wheezing or Dyspnea. 18 g 4 Active documented as of this encounter [...] c aster), +RV culture, currently 10/27/2013 06/29/2014 Overview (10/27/2013): Sensitive to Clindamycin, Vancomycin Encounter for supervision of other normal 04/17/2013 12/02/2013 Overview (06/14/2015): Patient received flu vaccine. 10/23/2013 Greta Tran RN 10/30/2013 Tdap Vaccine administered per clinic protocol. Pt given VIS(vaccine information sheet) Greta Tran RN ICD-10 update of inactive term , normal first 10/21/2012 1002/2012 Overview (10/21/2012): Conceived on clomid Acute bronchitis, complicated 09/28/2009 09/21/2010 documented as of this encounter (statuses as of 12/20/2023) Immunizations Name Administration Dates Next Due COVID-19 mRNA, LNP-s, No Pre serve, 2-Dose Series ([employer]) 04/30/2020,04/09/2020 COVID-19, LNP-s, No Preserve , Corona-sucrose, Ages 12+ (Pfizer) 01/30/2021 Covid-19, Mrna, Lnp-s, Pf, B ivalent, 30 Mcg, IM, 12 yrs and above ([employer]) 12/26/2022 HPV Vaccine, 4-Valent 04/27/2011,02/22/2011 Seasonal Influenza [...] Procedure Name Priority Date/Time Associated Diagnosis Comments OUTSIDE LAB RESULTS 12/13/2023 documented in this encounter Results * OUTSIDE LAB RESULTS (12/13/2023) 12/13/2023 Judie Marin PA-C LABORATORY F inal Result documented in this encounter Care Teams Assembler Mechanical Ordnance Relationship Specialty Start Date End Date Judie Cordero DO [address] [place] [id number] PCP - General Family Medicine 06/19/17 documented as of this encounter
--- OUTSIDE RECORDS SUMMARY | 2024-01-26 09:34 | External Medical Summary | Summary of Care ---
Author Name Unknown Organization [facility] Address [address] [place] [address] Phone [phone] Care Team Providers Care Recovery Collector Name Role Phone Judie Cordero DO Primary Care Provider [phone] Encounter Details Date Type Department Care Team (Late st Contact Info) Description 10/29/2023 Orders Only Outcomes Research Department [address] [place] [address] Gabrielle Patel CHRA [employer] [employer] Other*[id number] Allergies Active Allergy Reactions Criticality Noted Date Comments Chlorhexidine 07/14/2018 Rash after donating blood Prednisone Rash 02/22/2011 documented as of this encounter (statuses as of 10/29/2023) Medications Medication Sig Dispensed Refills Start Date [...] as of this encounter (statuses as of 10/29/2023) Active Problems Problem Noted Date Diagnosed Date [...] as of this encounter (statuses as of 10/29/2023) Resolved Problems Problem Noted Date Diagnosed Date [...] as of this encounter (statuses as of 10/29/2023) Immunizations Name Administration Dates Next Due COVID-19 mRNA, LNP-s, No Pre serve, 2-Dose Series ([employer]) 04/30/2020,04/09/2020 COVID-19, LNP-s, No Preserve , Corona-sucrose, Ages 12+ (Pfizer) 01/30/2021 Covid-19, Mrna, Lnp-s, Pf, B ivalent, 30 Mcg, IM, 12 yrs and above ([employer]) 12/26/2022 HPV Vaccine, 4-Valent 04/27/2011,02/22/2011 Seasonal Influenza Virus Vac cine, Unspecified Formulation 11/10/2020,11/20/2018 Seasonal Influenza, PF, 6 M & above, IM , (FluLaval or Fluzone) 12/18/2022,11/06/2019 Seasonal Influenza, Quadriva lent, No Preserve, IM 12/16/2017 Seasonal Influenza, Recombin ant, Trivalent, PF ([employer]) 11/04/2015 Seasonal Influenza, Trivalen t, (IIV3), with Preserv, [...] as of this encounter Plan of Treatment Scheduled Orders Name Type Priority Associated Diagnoses Orde r Schedule MYCODE SUBSEQUENT ADULT Lab Routine [employer] [facility] Other*[id number] Every 6 Months for 2 Occurrences starting 10/29/2023 until 11/17/2024 Health Maintenance Due Date Last Done Comments Hepatitis C Screening 2004 Hepatitis B Vaccine (1 of 3 - 19+ 3-dose series) 2005 HPV ([employer]) Vaccine (3 - 3-dose series) 08/23/2011 04/27/2011, 02/22/2011 Depression Screening 04/12/2023 04/11/2022 COVID-19 Vaccine ( season) 2023 12/26/2022, 11/03/2021, 01/30/2021, Additional history exists Influenza Vaccine (FLU shot) (#1) 2023 12/18/2022, 12/18/2022, 11/09/2021, Additional history exists Pap Smear 01/17/2025 01/17/2022, 07/12, 07/04/2016, Additional history exists Diabetes Screening 11/14/2025 11/14/2022, 11/02/2014 Cervical Cancer Screening 01/17/2027 HPV/Co-Test 01/17/2027 01/17/2022 DTap/Tdap Vaccines (4 - Td or Tdap) 06/20/2027 06/19/2017, 10/30/2013, 10/19/2008 MENINGOCOCCAL (MENACTRA/MENVEO) Aged Out No longer eligible based on patient's age to complete this topic Pneumococcal Vaccine: Pediatrics (0 to 5 Years) and At-Risk Patients (6 to 64 Years) Aged Out No longer eligible based on patient's age to complete this topic documented as of this encounter Medical Devices Not on filedocumented as of this encounter Visit Diagnoses Diagnosis [employer] [facility] Other*[id number] documented in this encounter Care Teams Recovery Collector Relationship Specialty Start Date End Date Judie Cordero DO [address] [place] [address] PCP - General Family Medicine 06/19/17 documented as of this encounter
--- OUTSIDE RECORDS SUMMARY | 2024-01-26 09:34 | External Medical Summary | Summary of Care ---
Author Name Unknown Organization [facility] Address [address] [place] [address] Phone [phone] Care Team Providers Care Hydrogen Cell Tender Name Role Phone GilJudie Nancy RENE Primary Care Provider [phone] Reason for Visit * Reason Comments NEW PATIENT Right foot Encounter Details Date Type Department Care Team (Late st Contact Info) Description 11/22/2023 11:00 AM EDT Office Visit Podiatry [facility] [address] [place] [address] Janette Hopson, DPNancy [address] [place] [address] Plantar fasciitis, right*; Equinus deformity of foot Allergies Active Allergy Reactions Criticality Noted Date Comments Chlorhexidine 07/14/2018 Rash after donating blood Prednisone Rash 02/22/2011 documented as of this encounter (statuses as of 11/22/2023) Medications Medication Sig Dispensed Refills Start Date [...] Wheezing or Dyspnea. 18 g 06/26/2023 Active Hospital, Clinic, or Other Facility Administered Medication Ordered Dose Route Frequency Start Date End Date Status bupivacaine (Sensorcaine) 0.5 % inj 2.5 mgIndications:Plantar fasciitis, right 2.5 mg IJ ONCE 11/22/2023 11/22/2023 Ended methylPREDNISolone acetate (Depo-Medrol) 20 MG/ML inj 10 mgIndications:Plantar fasciitis, right 10 mg IX ONCE 11/22/2023 11/22/2023 Ended dexamethasone sodium phosphate 20 MG/5ML inj 2 mgIndications:Plantar fasciitis, right 2 mg IX ONCE 11/22/2023 11/22/2023 Ended documented as of this encounter (statuses as of 11/22/2023) Active Problems Problem Noted Date Diagnosed Date [...] as of this encounter (statuses as of 11/22/2023) Resolved Problems Problem Noted Date Diagnosed Date [...] as of this encounter (statuses as of 11/22/2023) Immunizations Name Administration Dates Next Due COVID-19 mRNA, LNP-s, No Pre serve, 2-Dose Series ([employer]) 04/30/2020,04/09/2020 COVID-19, LNP-s, No Preserve , Corona-sucrose, Ages 12+ (Pfizer) 01/30/2021 Covid-19, Mrna, Lnp-s, Pf, B ivalent, 30 Mcg, IM, 12 yrs and above ([employer]) 12/26/2022 HPV Vaccine, 4-Valent 04/27/2011,02/22/2011 Seasonal Influenza [...] on file documented as of this encounter Progress Notes * Janette Hopson DPM - 11/22/2023 11:00 AM EDT Podiatry New Patient Note [facility] Name: Betzy Tolliver : 1985 Date: 11/22/2023 CHIEF COMPLAINT: right foot pain, plantar fasciitis HISTORY OF PRESENT ILLNESS: This patient is a 38 year old female who presents today with complaintsof right heel pain. She estimates this has been present for about 1 year. She denies injury. Pain is located on the bottom of the heel and is often worse with walking after a period of rest such as when getting out of bed in the morning. She has tried at home stretching, icing, night splint, taping, OTC anti inflammatories, and ortho feet shoes without much resolution. [place] this [place] by then. Past Medical History: Diagnosis Date Idiopathic scoliosis Migraine without aura 02/22/2011 failed imitrex, and prednisone Past Surgical History: Procedure Laterality Date DENTAL SURGERY PROCEDURE NEC wisdom teeth REMOVE TONSILS & ADENOIDS, UNDER 12 Family History Problem Relation Name Age of Onset Diabetes Mother Hypertension Mother not currently on medication No Past Hx Father No Past Hx Sister x2 Cervical Cancer Grandmother (Maternal) Diabetes Grandfather (Paternal) Hypertension Grandfather (Paternal) Cervical Cancer Aunt (Maternal) Social History Socioeconomic History Marital status: Number of children: 2 Occupational History 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 Comment: Mirena placed 12/17/17 Social Determinants of Health Food Insecurity: No Food Insecurity (09/05/2018) Hunger Vital Sign Worried About Running Out of Food in the Last Year: Never true Ran Out of Food in the Last Year: Never true Social Connections Current Outpatient Medications Medication Sig Dispense Refill Levonorgestrel 20 MCG/24HR Intrauterine Intrauterine Device (Mirena) Insert 1 Each into uterus once. Rizatriptan Benzoate 5 MG Oral Tablet Take 1 Tablet by mouth as needed for Migraine. May repeat in 2 hours if needed 10 Tablet 0 Magnesium 400 MG Oral Tablet Take by mouth. Riboflavin 400 MG Oral Capsule Take 1 Capsule by mouth in the morning. Albuterol Sulfate HFA 108 (90 Base) MCG/ACT Inhalation Aerosol Solution Inhale 2 Puffs by mouth every 4 hours as needed for Wheezing or Dyspnea. 18 g 0 No current facility-administered medications for this visit. ALLERGIES: Review of patient's allergies indicates: Allergen Reactions Chlorhexidine Rash after donating blood Prednisone Rash REVIEW OF SYSTEMS: CONSTITUTIONAL: No fevers, sweats, or chills FOCUSED PODIATRIC EXAM: Vascular: Pedal pulses palpable including dorsalis pedis and posterior tibial artery at 2/4 right. Capillary refill time is within normal limits to all toes. No significant pre-tibial edema noted. No warmth. Pedal hair growth noted. Neurologic: Sensation (light touch) intact to the right forefoot. Musculoskeletal: Pain is reported with palpation of the right heel - plantar aspect - medial, central, and lateral. No palpable mass. No muscle weakness appreciated. There is only slight limitation of ankle dorsiflexion noted with the knee extended. Dermatological: Skin temperature, texture, and turgor are within normal limits. No open lesions. There is no erythema or ecchymosis noted. DIAGNOSTIC STUDIES: X-ray, right foot, 11/22/2023 This includes three weight bearing x-rays AP MO and Lateral. No significant soft tissue findings. Plantar calcaneal enthesopathy noted on the lateral view. Os naviculare noted on the AP and MO views. ASSESSMENT: ICD-10-CM 1. Plantar fasciitis, right M72.2 2. Equinus deformity of foot M21.6X9 PLAN: I personally reviewed right foot x-rays as above. I noted the heel spurring and os naviculare although I do not feel these are causing her pain. I reviewed likely plantar fasciitis. She is to continue supportive shoes. I reviewed option of OTC and custom inserts if she has persistent issues though.I provided her additional at home exercises to do bilaterally once daily (AAOS F&A). Physical therapy was also mentioned. We can consider a Rx NSAID such as Meloxicam in the future if pain persists, but she was agreeable to try a steroid injection today. I recommended a steroid injection of the right heel at the plantar fascia today. I reviewed all risks, benefits, alternatives, and complications to this procedure with the patient. Risks include but are not limited to: pain, bleeding, bruising, infection, atrophy or thinning of the soft tissue, an i ncrease in blood glucose, allergic reaction, steroid flare, recurrence of condition, and possibility of no improvement in condition. Non OR time Out: Time out was initiated under direction and supervision of provider Janette Hopson DPM. Correct patient identity - Yes Correct side and site - Yes Procedure matches verbalized consent -Yes Correct patient position - Yes Availability of correct implants and any special equipment or special requirements - Yes Time out occurred prior to procedure start - Yes Prophylactic antibiotic timing confirmed - N/A Witness present & agrees with the time out process. The right heel was prepped with alcohol. Injection was performed using a 25 gauge needle. Injection consisted of: 0.5mL 20mg/ml Depomedrol 0.5mL of 4mg/ml dexamethasone sodium phosphate 0.5mL of 0.5% sensorcaine plain Injection was administered into the right plantar heel near the insertion of the medial and centralbands of the plantar fascia near the calcaneus. The patient tolerated the injection well. A dry dressing was applied over injection site. The patient was instructed to rest and limit very strenuous activity for 24 hours. She is to send me a [employer]elerik message if not noticing significant improvement in about 1 week. Janette Hopson DPM documented in this encounter Nursing Notes * Skylar Yepez MED ASSIST - 11/22/2023 10:53 AM EDT Here for new patient visit for ongoing plantar fasciitis of right foot. documented in this encounter Plan of Treatment Pending Results Name Type Priority Associated Diagnoses Date /Time XR FOOT 3 OR MORE VIEWS Medical Imaging Routine Plantar fasciitis, right 11/22/2023 11:18 AM EDT Health Maintenance Due Date Last Done Comments [...] as of this encounter Visit Diagnoses Diagnosis Plantar fasciitis, right- Primary Plantar fascial fibromatosis Equinus deformity of foot Other congenital deformity of feet documented in this encounter Administered Medications Inactive Administered Medications - up to 3 most recent administrations Medication Order MAR Action Action Date Dose Rate Site bupivacaine (Sensorcaine) 0.5 % inj 2.5 mg 2.5 mg (0.5 mL), Injection, ONCE, On Sat11/22/23 at 1215, For 1 dose Given 11/22/2023 11:41 AM EDT 2.5 mg Foot Right dexamethasone sodium phosphate 20 MG/5ML inj 2 mg 2 mg, Intra-Articular, ONCE, On Sat11/22/23 at 1215, For 1 dose, Protect from Light Given 11/22/2023 11:41 AM EDT 2 mg Foot Right methylPREDNISolone acetate (Depo-Medrol) 20 MG/ML inj 10 mg 10 mg, Intra-Articular, ONCE, On Sat11/22/23 at 1215, For 1 dose Given 11/22/2023 11:41 AM EDT 10 mg Foot Right documented in this encounter Care Teams Hydrogen Cell Tender Relationship Specialty Start Date End Date Judie Cordero DO [address] [place] [address] PCP - General Family Medicine 06/19/17 documented as of this encounter
--- NOTE | 2024-01-26 10:01 | Surgery Progress Note ---
Date of Service January 26, 2024 Assessment & Plan (1) Perforated chronic gastric ulcer: Plan: Hct 38 con't poornima till after UGI NG in place IVF IV zosyn OOB Admission and Anticipated Discharge Date Admission Date: January 25, 2024 Subjective pain controlled no flatus NG gastric poornima drainage slowing Review of Systems Constitutional: no fever and no chills Respiratory: no cough and no dyspnea Cardiovascular: no chest pain Gastrointestinal: + abdominal pain; no nausea, no vomiting and no change in bowel habits Genitourinary: no dysuria Musculoskeletal: no back pain Neurologic: + generalized weakness; no localized wea kness Psychiatric: no behavioral changes Physical Exam Constitutional: WD/WN, vitals as above Respiratory: normal respiratory effort, lungs clear to auscultation Cardiovascular: RRR, no murmur, no edema Gastrointestinal (Abdomen): Inspection/Auscultation: abdomen normal to inspection, + abdomen distended and normal bowel sounds Percussion/Palpation: + abdomen tender and abdomen soft; no guarding and abdomen not rigid Musculoskeletal: Head/Neck/Chest: normocephalic and head atraumatic Skin: no rashes, warm and dry Results & Data Vital Signs (Past 12 Hours) Vital Signs Temp Pulse Resp BP Pulse Ox O2 Del Method 01/26/24 08:33 36.9 C 86 16 122/81 94 Room Air 01/26/24 07:30 Room Air 01/26/24 03:03 36.8 C 88 16 126/78 92 Room Air 01/25/24 23:00 36.8 C 90 16 138/82 93 Room Air
[2024-01-26] MEDS: SODIUM CHLORIDE 0.9% 500 ML IV SCH (10:22)
[2024-01-26] MEDS ORDERED: CHLORASEPTIC (PHENOL) 1.4% SOLN 180 ML BTL PO PRN (12:55)
[2024-01-26] MEDS: ACETAMINOPHEN 1,000 MG/100 ML VIAL IV PRN (13:13)
[2024-01-27 07:43] LABS: Basophils # (auto) 0.04 K/uL (0.00-0.20); Basophils % (auto) 0.3 %; Eosinophils # (auto) 0.19 K/uL (0.00-0.50); Eosinophils % (auto) 1.6 %; Hematocrit (blood only) 36.1 % (37.0-47.0); Hemoglobin 12.1 g/dl (12.0-16.0); Immature Granulocytes # (auto) 0.05 K/uL (0.01-0.20); Immature Granulocytes % (auto) 0.4 %; Lymphocytes # (auto) 2.15 K/uL (1.20-3.40); Lymphocytes % (auto) 17.7 %; Mean Corpuscular Hemoglobin 29.7 pg (25.0-34.0); Mean Corpuscular Hgb Conc 33.5 g/dL (32.0-36.0); Mean Corpuscular Volume 88.7 fL (80.0-100.0); Mean Platelet Volume 10.7 fL (9.4-12.4); Monocytes # (auto) 0.85 K/uL (0.11-0.59); Neutrophils # (auto) 8.84 K/uL (1.40-6.50); Platelet Count 254 K/uL (130-400); RDW Standard Deviation 45.5 fL (36.4-46.3); Red Blood Count 4.07 M/uL (4.20-5.40); White Blood Count 12.12 K/ul (4.8-10.8)
[2024-01-27 07:53] LABS: Albumin Globulin Ratio 1.2 (0.9-2); Albumin Level 3.6 gm/dl (3.4-5.0); Bilirubin,Total 0.7 mg/dl (0.2-1.0); Calcium 8.9 mg/dl (8.6-10.3); Creatinine Clr Calc Pharmacy 131.1 ml/min; Globulin 3.1 gm/dl (2.5-4.0); Potassium 3.9 mmol/L (3.5-5.1); Total Protein 6.7 gm/dl (6.0-8.3)
--- NOTE | 2024-01-27 10:54 | Surgery Progress Note ---
Date of Service January 27, 2024 Assessment & Plan (1) Perforated chronic gastric ulcer: Plan: POD# 2 ex lap repair of perf gastric ulcer avss postop pain controlled no n,v NGT with 200 cc output, bilious Plan: Continue NPO with NGT to LIS Continue amy drain to bulb suction continue antiemetics and pain management as needed Continue IV Protonix BID, will need rx for Protonix on discharge BID Upper GI study tomorrow scheduled Ambulate hallway incentive spirometry Dr. Farrell has seen and examined patient agrees with above. Admission and Anticipated Discharge Date Admission Date: January 25, 2024 Subjective feeling okay, NGT bothersome no nausea or vomiting pain controlled ambulating to bathroom urinating without difficulty Physical Exam Constitutional: WD/WN, vitals as above cooperative and comfortable; no acute distress and not ill appearing Respiratory: normal respiratory effort; no respiratory distress and no labored breathing Gastrointestinal (Abdomen): Inspection/Auscultation: abdomen normal to inspection, + abdominal surgical incision (c/d/i with rajendra) and + abdominal surgical drain present (bloody serosanguineous); abdomen not distended Percussion/Palpation: + abdomen tender (at midline incision) Skin: no rashes, warm and dry Psychiatric: Orientation: alert and oriented x 3 Results & Data Vital Signs (Past 12 Hours) Vital Signs Temp Pulse Resp BP Pulse Ox O2 Del Method 01/27/24 05:49 36.9 C 96 H 16 124/76 94 Room Air Laboratory Results 01/27/24 Range/Units 07:20 WBC 12.12 H (4.8-10.8) K/ul RBC 4.07 L (4.20-5.40) M/uL Hgb 12.1 (12.0-16.0) g/dl Hct 36.1 L (37.0-47.0) % MCV 88.7 (80.0-100.0) fL MCH 29.7 (25.0-34.0) pg MCHC 33.5 (32.0-36.0) g/dL RDW Std Deviation 45.5 (36.4-46.3) fL RDW Coeff of Felice 14.0 (11.5-14.5) % Plt Count 254 (130-400) K/uL MPV 10.7 (9.4-12.4) fL Immature Gran % (Auto) 0.4 % Neut % (Auto) 73.0 % Lymph % (Auto) 17.7 % [place] % (Auto) 7.0 % Eos % (Auto) 1.6 % Baso % (Auto) 0.3 % Neut # (Auto) 8.84 H (1.40-6.50) K/uL Lymph # (Auto) 2.15 (1.20-3.40) K/uL [place] # (Auto) 0.85 H (0.11-0.59) K/uL Eos # (Auto) 0.19 (0.00-0.50) K/uL Baso # (Auto) 0.04 (0.00-0.20) K/uL Immature Gran # (Auto) 0.05 (0.01-0.20) K/uL Sodium 137 (136-145) mmol/L Potassium 3.9 (3.5-5.1) mmol/L Chloride 104 (98-107) mmol/L Carbon Dioxide 24 (21-32) mmol/L Anion Gap 9 (3-11) BUN 12 (6-23) mg/dl Creatinine 0.75 (0.6-1.2) mg/dl Est Cr Clr Drug Dosing 131.1 ml/min eGFR 105.09 BUN/Creatinine Ratio 16.0 (10-20) Glucose 91 (70-99(Fasting)) mg/dl Calcium 8.9 (8.6-10.3) mg/dl Total Bilirubin 0.7 (0.2-1.0) mg/dl AST 14 (13-39) U/L ALT 18 (7-52) U/L Alkaline Phosphatase 71 (34-104) U/L Total Protein 6.7 (6.0-8.3) gm/dl Albumin 3.6 (3.4-5.0) gm/dl Globulin 3.1 (2.5-4.0) gm/dl Albumin/Globulin Ratio 1.2 (0.9-2)
[2024-01-28 08:05] LABS: Basophils # (auto) 0.05 K/uL (0.00-0.20); Basophils % (auto) 0.5 %; Eosinophils # (auto) 0.27 K/uL (0.00-0.50); Eosinophils % (auto) 2.8 %; Hematocrit (blood only) 37.7 % (37.0-47.0); Hemoglobin 12.5 g/dl (12.0-16.0); Immature Granulocytes # (auto) 0.03 K/uL (0.01-0.20); Immature Granulocytes % (auto) 0.3 %; Lymphocytes # (auto) 1.64 K/uL (1.20-3.40); Lymphocytes % (auto) 16.7 %; Mean Corpuscular Hemoglobin 29.3 pg (25.0-34.0); Mean Corpuscular Hgb Conc 33.2 g/dL (32.0-36.0); Mean Corpuscular Volume 88.5 fL (80.0-100.0); Mean Platelet Volume 10.7 fL (9.4-12.4); Monocytes # (auto) 0.58 K/uL (0.11-0.59); Monocytes % (auto) 5.9 %; Neutrophils # (auto) 7.24 K/uL (1.40-6.50); Neutrophils % (auto) 73.8 %; Platelet Count 298 K/uL (130-400); RDW Coefficient of Variation 13.9 % (11.5-14.5); RDW Standard Deviation 44.9 fL (36.4-46.3); Red Blood Count 4.26 M/uL (4.20-5.40); White Blood Count 9.81 K/ul (4.8-10.8)
[2024-01-28 08:24] LABS: Albumin Globulin Ratio 1.1 (0.9-2); Albumin Level 3.7 gm/dl (3.4-5.0); BUN Creatinine Ratio 16.5 (10-20); Bilirubin,Total 0.9 mg/dl (0.2-1.0); Creatinine Clr Calc Pharmacy 124.5 ml/min; Globulin 3.5 gm/dl (2.5-4.0); Potassium 3.8 mmol/L (3.5-5.1); Total Protein 7.2 gm/dl (6.0-8.3)
--- NOTE | 2024-01-28 11:58 | Fluoroscopy Report ---
FL upper GI series wo air CLINICAL HISTORY: perforated gastric ulcer repair assessmentfollow-up setting of patient with recent perforated gastric ulcer repair COMPARISON STUDY: CT 01/25/2024 FLUOROSCOPY TIME: 1.02 minutes FLUOROSCOPY IMAGES: 10 Ka,r: 51.7 mGy FINDINGS: Surgical drainage catheter with midline skin rajendra from recent laparotomy. Distal tip of enteric tube projects over the mid stomach on the map compiler image. The patient then ingested approximatel y 50 mL of Optiray 320. There is partial distention of the stomach with normal emptying of contrast i nto the duodenum and proximal jejunum. No extravasation of contrast identified to suggest persistent gastric wall injury. IMPRESSION: No extravasation of gastric contrast identified. ACT 112: Negative or not required by law. Electronically signed by: Luca Basilio M.D. 01/28/2024 11:55 AM
--- NOTE | 2024-01-28 14:27 | Surgery Progress Note ---
<Statement entered by Antonia Harp DO - 01/28/24 15:29> I have seen and examined this patient with the surgical team and I agree with this plan. Date of Service January 28, 2024 Assessment & Plan (1) Perforated chronic gastric ulcer: Plan: POD3 ex lap repair gastric ulcer VSS, WBC wnl contrast study today , no concerns for leak Remove NGT Start clear liquid diet , go slow incision CDI no s/s infection noted Keep LETHA OOB ambulate halls Admission and Anticipated Discharge Date Admission Date: January 25, 2024 Subjective pt reports no abd pain denies n/v , f/c Review of Systems Constitutional: no fever and no chills Respiratory: no dyspnea Cardiovascular: no chest pain Gastrointestinal: no abdominal pain, no nausea and no vomiting Psychiatric: no confusion Physical Exam Constitutional: cooperative and comfortable; no acute distress Respiratory: normal respiratory effort; no respiratory distress Cardiovascular: Rate/Rhythm: regular rate Gastrointestinal (Abdomen): Inspection/Auscultation: + abdominal surgical incision (rajendra CDI no s/s infection noted ) Percussion/Palpation: + abdomen tender (RLL mild) and abdomen soft Musculoskeletal: no cyanosis or clubbing, extremities motor strength 5/5 Psychiatric: Orientation: alert and oriented x 3 Results & Data Vital Signs (Past 12 Hours) Vital Signs Temp Pulse Resp BP Pulse Ox O2 Del Method 01/28/24 07:23 97.9 F 78 18 119/81 96 Room Air Results CBC w Diff Results: RBC 4.26 M/uL (4.20-5.40) 01/28/24 WBC 9.81 K/ul (4.8-10.8) 01/28/24 Hgb 12.5 g/dl (12.0-16.0) 01/28/24 Hct 37.7 % (37.0-47.0) 01/28/24 MCV 88.5 fL (80.0-100.0) 01/28/24 MCH 29.3 pg (25.0-34.0) 01/28/24 MCHC 33.2 g/dL (32.0-36.0) 01/28/24 RDW Standard Deviation 44.9 fL (36.4-46.3) 01/28/24 RDW Coefficient of Variation 13.9 % (11.5-14.5) 01/28/24 Plt Count 298 K/uL (130-400) 01/28/24 MPV 10.7 fL (9.4-12.4) 01/28/24 Neutrophils (%) (Auto) 73.8 % 01/28/24 Lymphocytes (%) (Auto) 16.7 % 01/28/24 Monocytes # (Auto) 0.58 K/uL (0.11-0.59) 01/28/24 Eosinophils # (Auto) 0.27 K/uL (0.00-0.50) 01/28/24 Immature Granulocyte % (Auto) 0.3 % 01/28/24 Neutrophils # (Auto) 7.24 K/uL (1.40-6.50) H 01/28/24 Lymphocytes # (Auto) 1.64 K/uL (1.20-3.40) 01/28/24 Monocytes # (Auto) 0.58 K/uL (0.11-0.59) 01/28/24 Eosinophils # (Auto) 0.27 K/uL (0.00-0.50) 01/28/24 Basophils # (Auto) 0.05 K/uL (0.00-0.20) 01/28/24 Immature Granulocyte # (Auto) 0.03 K/uL (0.01-0.20) 4 PG Care Time/CCT Total # of Minutes Spent Total Time Spent with Patient: Total time spent is greater than 50% in coordination of care (as documented) at patient's floor/unit and/or counseling patient: Coding Level of Care Code 94491 Post Operative Follow-Up Diagnoses Perforated chronic gastric ulcer K25.5
[2024-01-28] MEDS: LIDOCAINE 5% 1 PATCH TD STA (15:22)
--- NOTE | 2024-01-29 07:47 | Surgery Progress Note ---
<Statement entered by Antonia Harp DO - 01/29/24 11:09> I have seen and examined this patient this am. She continues to progress well. I agree with the above plan. Will follow up in the am. Date of Service January 29, 2024 Assessment & Plan (1) Perforated chronic gastric ulcer: Plan: POD 4 ex lap repair gastric ulcer VSS, WBC wnl tolerated clear liquid diet , advance to fulls today incision CDI no s/s infection noted OOB ambulate halls Keep LETHA until day of D/C Admission and Anticipated Discharge Date Admission Date: January 25, 2024 Subjective pt reports no abd pain denies n/v , f/c Lidoderm patch helped neck pain yesterday Review of Systems Constitutional: no fever and no chills Respiratory: no dyspnea Cardiovascular: no chest pain Gastrointestinal: no abdominal pain, no nausea and no vomiting Psychiatric: no confusion Physical Exam Constitutional: cooperative and comfortable; no acute distress Respiratory: normal respiratory effort; no respiratory distress Cardiovascular: Rate/Rhythm: regular rate Gastrointestinal (Abdomen): Inspection/Auscultation: + abdominal surgical incision (rajendra CDI no s/s infection noted ) Percussion/Palpation: abdomen soft; abdomen nontender Musculoskeletal: no cyanosis or clubbing, extremities motor strength 5/5 Psychiatric: Orientation: alert and oriented x 3 Results & Data Vital Signs (Past 12 Hours) Vital Signs Temp Pulse Resp BP Pulse Ox O2 Del Method 01/28/24 20:59 98.2 F 81 16 130/81 96 Room Air PG Care Time/CCT Total # of Minutes Spent Total Time Spent with Patient: Total time spent is greater than 50% in coordination of care (as documented) at patient's floor/unit and/or counseling patient: Coding Level of Care Code 27792 Post Operative Follow-Up Diagnoses Perforated chronic gastric ulcer K25.5
[2024-01-29 07:49] VITALS: RESP 18
[2024-01-29] MEDS: AMOXICILLIN/CLAVULANATE 875 MG TAB PO SCH (17:43)
[2024-01-30 08:07] VITALS: BP 116/79; PULSE 94; TEMP 98.4; O2SAT 94
--- NOTE | 2024-01-30 09:13 | Surgery Progress Note ---
Date of Service January 30, 2024 Assessment & Plan (1) Perforated chronic gastric ulcer: Plan: POD#5 ex lap repair gastric ulcer Vital signs are stable tolerated full without issues, will advance to low fiber incision CDI no s/s infection noted ; LETHA drain serosang OOB ambulate halls If tolerates diet we can consider dispo to home later today and pull LETHA drain Home on BID PPI Will need to f/u in the office with dr. saleh in 1-2 weeks time Admission and Anticipated Discharge Date Admission Date: January 25, 2024 Supervising Physician Co-Signing Physician Notes I have seen this patient this am. She has done very well and is stable for discharge. Discharge per Dr. Saleh as described by surgical team. Subjective The patient is doing well. Abdominal pain controlled. Denies nausea/vomiting. Tolerating full liquids. + gas/BMs Physical Exam Physical Exam: awake/alert, no distress Gastrointestinal (Abdomen): Inspection/Auscultation: + abdominal surgical incision (c/d/i with midline rajendra, no signs of infection) and + abdominal surgical drain present (serosang. ) Percussion/Palpation: abdomen soft; abdomen nontender Results & Data Vital Signs (Past 12 Hours) Vital Signs Temp Pulse Resp BP Pulse Ox O2 Del Method 01/30/24 08:06 98.4 F 94 H 18 116/79 94 Room Air PG Care Time/CCT Total # of Minutes Spent Total Time Spent with Patient: Total time spent is greater than 50% in coordination of care (as documented) at patient's floor/unit and/or counseling patient: Coding Level of Care Code 17079 SUB INP/OBS CARE 03/07MIN Diagnoses Perforated chronic gastric ulcer K25.5
[2024-01-30] MEDS ORDERED: PANTOprazole 40 MG TAB PO SCH (21:00)
== END 2024-01-30 14:44 | disposition home or self-care (01) | DRG 328 ==
LOC: ED 10:10 → 3W 15:22 → 3N 01-28 19:34